=== PATIENT | male | born 1940 | race Caucasian/White ===

== ENCOUNTER 2016-11-16 10:03 | Inpatient (IN) | payer MEDICARE, OTHER ==
[~2016-11-16] VITALS: Ht 172.7 cm; Wt 67.2 kg
[2016-11-16] MEDS ORDERED: MULT1TAB11 PO (10:14)
[2016-11-16 10:25] LABS: BASO % 0.9 % (0.0-1.0); EOS # 0.3 K/mm3 (0.0-0.50); EOS % 4.9 % (0.0-3.0); LARGE UNSTAINED CELL # 0.1 K/mm3 (0.0-0.4); LYMPH # 1.2 K/mm3 (1.5-4.5); LYMPH % 19.8 % (24.0-44.0); MEAN CORPUSCULAR HEMOGLOBIN 31.2 pg (27.0-33.0); MEAN CORPUSCULAR HGB CONC 33.3 g/dl (32.0-36.5); MEAN CORPUSCULAR VOLUME 93.8 fl (80.0-96.0); MONO # 0.4 K/mm3 (0.0-0.8); MONO % 6.4 % (0.0-5.0); NEUTROPHILS # 4.1 K/mm3 (1.8-7.7); PLATELET COUNT, AUTOMATED 255 k/mm3 (150-450); WHITE BLOOD COUNT 6.1 K/mm3 (4.0-10.0)
[2016-11-16 10:31] LABS: INR 0.91
--- NOTE | 2016-11-16 10:40 | REP ---
CT HEAD WITHOUT CONTRAST: HISTORY: Infarction. An area of decreased attenuation is present in the left internal capsule. This represents an old lacunar infarction. Areas of decreased attenuation are present in the periventricular white matter. This represents small vessel ischemic disease. There is no intraparenchymal hemorrhage, mass or midline shift. The ventricular system and cortical sulci are dilated consistent with minimal volume loss. There is no extracerebral collection. The visualized sinuses are clear. IMPRESSION: 1. 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 2. Small vessel ischemic disease. 3. Minimal volume loss. Signed by Esteban Lugo MD 11/16/2016 10:43 A
--- NOTE | 2016-11-16 10:42 | ECGEPIP ---
Stationary ECG Study [facility] - ED Test Date: 2016-11-16 Pat Name: STEPHIE SAMUELS Department: Room: - Gender: M Glass Carrier: leonila : 1940 Requested By: Yandel Dash Order Number: [id number] Reading MD: Tuan De La Torre Measurements Intervals [place] Rate: 72 P: 69 HI: 191 QRS: 25 QRSD: 102 T: 45 QT: 385 QTc: 423 Interpretive Statements SINUS RHYTHM POSSIBLE LAE NO PRIORS Electronically Signed On 11-16-2016 10:41:40 EDT by Tuan De La Torre
--- NOTE | 2016-11-16 10:42 | REP ---
Chest one-view HISTORY: Infarction Comparison: None The lungs are clear. The heart is normal in size. The pulmonary vasculature is normal in appearance. Impression: No acute disease. Signed by Esteban Lugo MD 11/16/2016 10:35 A
[2016-11-16 10:50] LABS: ANION GAP 8 MEQ/L (8-16); BLOOD UREA NITROGEN 19 MG/DL (7-18); CALCIUM LEVEL 9.1 MG/DL (8.8-10.2); CARBON DIOXIDE LEVEL 27 MEQ/L (21-32); CHLORIDE LEVEL 107 MEQ/L (98-107); CREATININE FOR GFR 1.54 MG/DL (0.70-1.30); GLOMERULAR FILTRATION RATE 47.2 (>42); GLUCOSE, FASTING 79 MG/DL (83-110); POTASSIUM SERUM 4.4 MEQ/L (3.5-5.1); SODIUM LEVEL 142 MEQ/L (136-145)
[2016-11-16] MEDS ORDERED: ISOVUE-370 76% 100ML VIAL (Q9967) As Ordered ONE (11:08)
--- NOTE | 2016-11-16 12:12 | REP ---
CT ANGIO HEAD: HISTORY: Left arm weakness. Contrast: Isovue 370, 75 mL. There is no aneurysm or arteriovenous malformation. Calcified atherosclerotic plaques are present in the cavernous internal carotid arteries. These produce at least mild stenosis. Major intracranial vessels are patent. The left vertebral artery is dominant. IMPRESSION: 1. There is no aneurysm or arteriovenous malformation. 2. Atherosclerotic disease as described above. Signed by Esteban Lugo MD 11/16/2016 12:14 P
[2016-11-16] MEDS ORDERED: VITA400C2 PO (12:14)
[2016-11-16] MEDS ORDERED: GARL500T PO (12:14)
[2016-11-16] MEDS ORDERED: VITMTA PO (12:14)
[2016-11-16] MEDS ORDERED: VITA-122 PO (12:14)
[2016-11-16] MEDS ORDERED: ASPI1TAB PO (12:14)
[2016-11-16] MEDS ORDERED: OCUVTAB PO (12:16)
[2016-11-16] MEDS ORDERED: ACETAMINOPHEN TAB 650MG DOSE (2X325MG) PO PRN (12:30)
[2016-11-16 12:47] LABS: ALBUMIN 3.8 GM/DL (3.2-5.2); ALBUMIN/GLOBULIN RATIO 1.19 (1.00-1.93); ALKALINE PHOSPHATASE 98 U/L (45-117); ALT/SGPT 29 U/L (12-78); AST/SGOT 29 U/L (15-37); BILIRUBIN,TOTAL 0.5 MG/DL (0.2-1.0); MAGNESIUM LEVEL 2.3 MG/DL (1.8-2.4)
--- NOTE | 2016-11-16 12:50 | HPEPDOC ---
General Date of Admission Nov 16, 2016 at 12:18 Chief Complaint The patient is a 76-year-old male Presented to the ER with complaints of left hand clumsiness and weakness since 830 AM. History of Present Illness Patient is a 76 year old male with a PMHx Irritable bowel syndrome and arthritis of the thumbs who presented to the ER with complaints of left hand clumsiness and weakness since 830AM. Patient noted that he woke up without any issues and was shaving. He later noticed that he had some clubmsiness and weakness of that hand that he tried to shake off. He took a shower after that and noticed there was no change. He then had his bring him to the ER. Patient denies any history of stroke or heart attacks in the past. Has never had a stress test, chest pain or shortness of breath. He notes that he takes ASA 81 mg, 2 pills daily for arthritis. Upon arrival to the ER, patient had a CT scan of his head which was negative for hemorrhage. [facility] was contacted and he had a discussion with Dr. Mariya Chaudhary who recommended that tPA was not-indicated given that he had minimal symptoms. He was advised to have a CTA of his head and an MRI completed. Hospitalist team was called for admission at that point. Patient denies nausea, vomiting, chest pain, shortness of breath, cough, abdominal pain, constipation, diarrhea, urinary symptoms or fever. He denies any slurred speech or difficulty with ambulation. Home Medications Scheduled Aspirin (Aspirin 81) 81 Mg Tab 162 MG PO DAILY (Reported) Cholecalciferol (Vitamin D3) 1,000 Unit Tab 1,000 UNIT PO DAILY (Reported) Garlic (Garlic) 500 Mg Tab 500 MG PO DAILY (Reported) Multivitamins (Ocuvite) 1 Tab Tab 1 TAB PO DAILY (Reported) Multivitamins *[facility] STOCKED* (Thera M Plus *[facility] STOCKED*) 1 Tab Tab 1 TAB PO DAILY (Reported) Vitamin E (Vitamin E) 400 Unit Cap 400 UNIT PO DAILY (Reported) Allergies Coded Allergies: No Known Allergies (Unverified , 11/16/16) Past Medical History Medical History Irritable bowel syndrome and arthritis Surgical History Appendectomy (1964) Family History - Mother with a history of TIA and Strokes - Fathers history unknown - No history of malignancies Social History - Denies the use of tobacco or illicit drugs; Drinks wine occasionally - Denies recent travel or sick contacts - Lives with in [place] - Occupation; Owns an Insurance [employer] Review of Symptoms Other systems Constitutional: Reports weight loss of 10 lbs over 2-3 years, No change in appetite, or recent trauma Eyes: No visual changes or eye pain Ears, Nose, Throat: Denies nose bleeds, or difficulty swallowing Cardiovascular: Denies chest pain, sweating, or orthopnea Respiratory: Denies cough, wheezing, or shortness of breath GI: Kaushik nausea, vomiting, abdominal pain, diarrhea or constipation : Denies pain with urination or frequency Musculoskeletal: Denies joint pain or swelling Neuro / Psych: Reports left hand weakness / clumsiness Skin: No skin rashes noted All other review of systems negative; otherwise stated in history of present illness Screening: - Colonoscopy never done Vital Signs - Vitals: BP 175/95, HR 72, RR 16, Sat 98%RA, Temp 98.9F - General: Lying in bed, No acute distress, Speaking in full sentences, AAOx3 - HEENT: NC, AT, PERRLA, EOMI - CVS: RRR, +S1S2, No murmurs appreciated - Lungs: Fair air entry bilaterally, Clear to auscultation, No wheezing / rales / rhonchi - Abdomen: Soft, Non-distended, Non-tender, + Bowel sounds x 4 - Extremities: + PPx4, No lower extremity edema, No calf tenderness - Neuro: 5/5 at all extremities except at LUE with 4/5 strength, Sensation intact bilaterally, CN2-12 grossly intact, reflexes intact bilaterally at LE - Skin: No visible rashes Laboratory Data Labs 24H Laboratory Tests 2 11/16/16 10:16: Activated Partial Thromboplast Time 26.8, Blood Urea Nitrogen 19H, Creatinine 1.54H, Sodium Level 142, Potassium Level 4.4, Chloride Level 107, Carbon Dioxide Level 27, Calcium Level 9.1, Aspartate Amino Transf (AST/SGOT) 29, Alanine Aminotransferase (ALT/SGPT) 29, Total Creatine Kinase 178, Alkaline Phosphatase 98, Total Bilirubin 0.5, Total Protein 7.0, Albumin 3.8, Albumin/ Globulin Ratio 1.19, Anion Gap 8, White Blood Count 6.1, Red Blood Count 4.56, Hemoglobin 14.2, Hematocrit 42.7, Mean Corpuscular Volume 93.8, Mean Corpuscular Hemoglobin 31.2, Mean Corpuscular Hemoglobin Concent 33.3, Red Cell Distribution Width 12.0, Platelet Count 255, Neutrophils (%) (Auto) 66.0, Lymphocytes (%) (Auto) 19.8L, Monocytes (%) (Auto) 6.4H, Eosinophils (%) (Auto) 4.9H, Basophils (%) (Auto) 0.9, Neutrophils # (Auto) 4.1, Lymphocytes # (Auto) 1.2L, Monocytes # (Auto) 0.4, Eosinophils # (Auto) 0.3, Basophils # (Auto) 0.0, Creatine Kinase MB 5.0H, Creatine Kinase MB Relative Index 2.80, Glomerular Filtration Rate 47.2, Large Unclassified Cells # 0.1, Large Unclassified Cells % 2.0, Magnesium Level 2.3, Prothromb Time International Ratio 0.91, Prothrombin Time 12.4, Troponin I < 0.02 11/16/16 10:33: Bedside Glucose (Misc Panel) 81L CBC/BMP Laboratory Tests 11/16/16 10:16 Calcium Level 9.1, Aspartate Amino Transf (AST/SGOT) 29, Alanine Aminotransferase (ALT/SGPT) 29, Total Creatine Kinase 178, Alkaline Phosphatase 98, Total Bilirubin 0.5, Total Protein 7.0, Albumin 3.8, Red Blood Count 4.56, Mean Corpuscular Volume 93.8, Mean Corpuscular Hemoglobin 31.2, Mean Corpuscular Hemoglobin Concent 33.3, Red Cell Distribution Width 12.0, Neutrophils (%) (Auto) 66.0, Lymphocytes (%) (Auto) 19.8 L, Monocytes (%) (Auto ) 6.4 H, Eosinophils (%) (Auto) 4.9 H, Basophils (%) (Auto) 0.9, Neutrophils # ( Auto) 4.1, Lymphocytes # (Auto) 1.2 L, Monocytes # (Auto) 0.4, Eosinophils # ( Auto) 0.3, Basophils # (Auto) 0.0 Plan / VTE VTE Prophylaxis Ordered?: Yes Plan Plan Left hand weakness possibly 2/2 acute CVA - Presented with symptoms that started at 830 AM - [facility] contacted; Dr. 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 Alfred) will be on consult Hypertension - will allow permissive hypertension in next 48-72 hours - will monitor for now Elevated creatinine - possibly 2/2 BENJAMIN or CKD - No baseline to compare - Will check urinalysis and urine electrolytes - Will start IV fluid hydration Irritable bowel syndrome - does not take any medications Arthritis of thumbs, bilaterally - reports that he takes ASA for his hands - will increase dose of ASA from 162 to 325 DVT prophylaxis - Will start SCDs EMMANUEL GOODE MD Nov 16, 2016 12:50
--- NOTE | 2016-11-16 14:31 | REP ---
MR BRAIN WITHOUT CONTRAST: HISTORY: Left hand weakness. COMPARISON: CT 11/16/2016 Two punctate areas of increased signal intensity on diffusion and T2-weighted images are present in the right frontal and parietal lobes. These are decreased in signa intensity on the ADC images and are consistent with acute infarctions. Scattered punctate areas of increased signal intensity on T2-weighted images are present in the periventricular and subcortical white matter. This represents small vessel ischemic disease. There is no intraparenchymal hemorrhage, mass, or midline shift. The ventricular system and cortical sulci are dilated consistent with minimal volume loss. There is no extracerebral collection. The sinuses are clear. IMPRESSION: 1. There are two very small acute infarctions in the right frontal and parietal lobes. 2. Small vessel ischemic disease. 3. Minimal volume loss. Signed by Esteban Lugo MD 11/16/2016 02:52 P
[2016-11-16 15:07] VITALS: BP 163/87
--- NOTE | 2016-11-16 15:11 | REP ---
CAROTID DUPLEX ULTRASOUND: 11/16/2016. Clinical history: CVA symptoms. Left hand weakness. No comparison study. Findings: Duplex techniques utilized. There is some scattered mixed and soft plaque in the right common carotid artery. More plaque is seen at the bulb and extending in a circumferential fashion into the proximal ICA and ECA. The left common carotid shows some intimal thickening and soft and mixed plaque. This is seen extending to the bulb but with less plaque on the left than right side at the bulb and proximal ICA. Peak velocities: Right Left CCA systolic 0.81 m/s 1.11 m/s ICA systolic 1.02 m/s 0.71 m/s ICA diastolic 0.36 m/s 0.27 m/s ECA systolic 1.16 m/s 0.86 m/s ICA/CCA ratio 1.25 0.64 Cranial direction of flow in the left vertebral artery with good Doppler waveform and color flow. On the right, there is poor visualization of the vertebral artery, but pulse Doppler shows normal flow in a cranial direction. Impression: 1. There is some bilateral carotid stenosis (less than 50% stenosis) greater right than left. There is greater stenosis of the bulb and proximal right internal carotid than the left with more plaque visible. Both sides show less than 50% on each side. No hemodynamically significant or flow restricting lesion. 2. Cranial direction of flow in the left vertebral artery is seen. Color flow not demonstrated in the right vertebral artery. The pulsed wave Doppler did show a cranial direction of flow on the right vertebral exam. Signed by Manoj Alexander MD 11/16/2016 05:09 P
[2016-11-16] MEDS: NS 1,000 ML IV SCH (15:31)
[2016-11-16] MEDS: ATORVASTATIN 20 MG TAB PO SCH (15:33)
[2016-11-16] MEDS ORDERED: ATORVASTATIN 10 MG TAB PO ONE (19:15)
[2016-11-16] MEDS ORDERED: ASPIRIN 325 MG TAB PO ONE (19:15)
--- NOTE | 2016-11-16 19:45 | ECHO ---
DATE OF PROCEDURE: 11/16/2016 REFERRING PHYSICIAN: Dr. Casey Manning INDICATIONS: Cerebrovascular accident. HEIGHT: 173 cm WEIGHT: 71 kg DIMENSIONS: IVS:1.2 LV: 4.3 LVPW: 1.2 LA: 3.7 Aorta: 3.7 Mitral E-wave velocity 66.1 cm/sec E-prime velocity septal 7.1 cm/sec E-prime velocity lateral 7.8 cm/sec FINDINGS: The study is of fair technical quality with difficult visualization. Left ventricle is of normal size and grossly normal systolic function based on limited views. Mild left ventricular hypertrophy (LVH) is present. Right ventricle does not appear enlarged. Left atrium and right atrium appear grossly normal size. Aortic valve appears normal. Same applies for mitral tricuspid and pulmonic valves. No pericardial effusion is noted. Inferior vena cava is normal caliber with limited visualization. Aortic root appears normal. Aortic arch and abdominal aorta were not well seen. Doppler interrogation of aortic valve reveals no stenosis and trace insufficiency. There is no significant mitral stenosis insufficiency and trace tricuspid insufficiency. Calculated pulmonary artery pressure is within normal limits. Mitral inflow pattern and tissue Doppler imaging of mitral annulus reveal grade 1 diastolic dysfunction. CONCLUSIONS: 1. Study is of limited technical quality. 2. Normal left ventricle (LV) size with mild LVH and normal LV systolic function. Grade 1 diastolic dysfunction. 3. No significant valvular disease. 4. Probably normal central venous pressure and pulmonary artery pressure. COMMENT: Subacute bacterial endocarditis (SBE) prophylaxis is not recommended. 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
[2016-11-16 20:36] VITALS: BP 160/88
[2016-11-17] VITALS (7 sets, daily range): BP systolic 141–169; BP diastolic 72–85
[2016-11-17] MEDS: NS 1,000 ML IV SCH (04:00)
[2016-11-17 06:13] LABS: BASO % 0.5 % (0.0-1.0); EOS # 0.3 K/mm3 (0.0-0.50); EOS % 5.2 % (0.0-3.0); LARGE UNSTAINED CELL # 0.1 K/mm3 (0.0-0.4); LARGE UNSTAINED CELL % 1.7 % (0.0-4.0); LYMPH # 1.5 K/mm3 (1.5-4.5); LYMPH % 21.7 % (24.0-44.0); MEAN CORPUSCULAR HEMOGLOBIN 31.5 pg (27.0-33.0); MEAN CORPUSCULAR HGB CONC 33.9 g/dl (32.0-36.5); MEAN CORPUSCULAR VOLUME 93.2 fl (80.0-96.0); MONO # 0.3 K/mm3 (0.0-0.8); MONO % 5.4 % (0.0-5.0); NEUTROPHILS # 4.1 K/mm3 (1.8-7.7); NEUTROPHILS % 65.5 % (36.0-66.0); PLATELET COUNT, AUTOMATED 206 k/mm3 (150-450); RED CELL DISTRIBUTION WIDTH 12.3 % (11.5-14.5); WHITE BLOOD COUNT 6.2 K/mm3 (4.0-10.0)
[2016-11-17 06:30] LABS: ALKALINE PHOSPHATASE 78 U/L (45-117); ALT/SGPT 23 U/L (12-78); AST/SGOT 19 U/L (15-37); BILIRUBIN,TOTAL 0.6 MG/DL (0.2-1.0); BLOOD UREA NITROGEN 15 MG/DL (7-18); CALCIUM LEVEL 8.6 MG/DL (8.8-10.2); GLUCOSE, FASTING 94 MG/DL (83-110); MAGNESIUM LEVEL 2.1 MG/DL (1.8-2.4); POTASSIUM SERUM 3.8 MEQ/L (3.5-5.1); SODIUM LEVEL 142 MEQ/L (136-145); TOTAL PROTEIN 6.1 GM/DL (6.4-8.2)
[2016-11-17 06:39] LABS: ALBUMIN 3.1 GM/DL (3.2-5.2); ALBUMIN/GLOBULIN RATIO 1.03 (1.00-1.93)
[2016-11-17] MEDS ORDERED: ASPIRIN 81 MG ENTERIC TAB PO SCH (09:00)
[2016-11-17 09:04] LABS: ANION GAP 4 MEQ/L (8-16); CARBON DIOXIDE LEVEL 30 MEQ/L (21-32); CHLORIDE LEVEL 108 MEQ/L (98-107)
[2016-11-17] MEDS: ATORVASTATIN 20 MG TAB PO SCH (09:21)
[2016-11-17] MEDS: MULTIVITAMINS/MINERALS THERAP 1 TAB PO SCH (09:21)
[2016-11-17] MEDS: VITAMIN E 400 INTERNATIONAL UNITS CAP PO SCH (09:21)
[2016-11-17] MEDS: ASPIRIN ENTERIC 325 MG TAB PO SCH (09:21)
[2016-11-17] MEDS: VITAMIN D 1,000 INTERNATIONAL UNITS TABLET PO SCH (09:21)
--- NOTE | 2016-11-17 09:39 | CR ---
DATE OF CONSULTATION: 11/17/2016 HISTORY OF PRESENT ILLNESS: The patient is a 76-year-old right-handed male presenting to [facility] after having clumsiness of his left hand. The patient states the symptoms started approximately between 8:00 and 8:38 a.m. He arrived to little short of 9:00 a.m. to the emergency department. Head CT was negative for any intracranial hemorrhage. The ER staff contacted [facility] stroke service and spoke with Dr. Ania Donnelly who did not recommend tissue plasminogen activator (TPA). The patient was advised stroke workup and recommended to switch from aspirin to Plavix. The patient takes aspirin for arthritic pain and wishes to continue on it. A compromise was made and the patient was placed on aspirin 325 mg daily. He refused to start a statin medication. The patient at bedside agreed to consider a very low-dose 10 mg atorvastatin at the most. The patient denies any further symptoms. He states that his hand and clumsiness of the left upper extremity has improved since the morning. MRI of the brain has revealed two ischemic strokes involving the right frontal and the right parietal lobes. The patient has small-vessel ischemic disease minimal volume loss. He denies being a tobacco user. He does not have any significant past medical history. PAST MEDICAL HISTORY: Vitamin D deficiency. Osteoarthritis. Irritable bowel syndrome. REVIEW OF SYSTEMS: 14-point review of systems is negative except for as per HPI. FAMILY HISTORY: Noncontributory. Mother with stroke at a very old age. SOCIAL HISTORY: The patient denies use of tobacco, alcohol or illicit drugs. ALLERGIES: None. HOME MEDICATIONS: - aspirin 81 mg 2 tablets by mouth daily. - vitamin D3 1000 international units by mouth daily - garlic 5 mg daily - multivitamin by mouth daily - Ocuvite by mouth daily - vitamin E 400 mg capsule by mouth daily PAST SURGICAL HISTORY: Appendectomy in 1963. PHYSICAL EXAMINATION: Blood pressure is 163/87, pulse rate 72, respiratory rate is 18, temperature is 98.1 degrees Fahrenheit, oxygenation 98% on room air. Current height 5 feet 8 inches, current weight is 69.7 kg. The patient is awake, alert, oriented to person, place and time. Speech language comprehension, repetition are intact. Pupils are 3 mm round, reactive to light. Sensation V1, V2, V3 is intact to light touch. No facial asymmetry to activation. Palate elevates symmetrically. Tongue is midline. No weakness of sternocleidomastoid bilaterally. No pronator drift. Strength is 5/5 including deltoids, biceps, triceps, hand tool grinding technician, iliopsoas, quadriceps, anterior tibialis. Deep tendon reflexes are 2+ throughout. Romberg testing is negative. Coordination: Normal [id number], [id number] on the right side, very minimal ataxia is noted of the left upper extremity. Romberg testing is negative. Gait is normal. ASSESSMENT: Ischemic stroke involving the right frontal and right parietal lobe. Rule out causes for emboli. PLAN: 1. Continue aspirin 325 mg daily. Start atorvastatin 10 mg by mouth daily. The patient wishes to not try a dose higher than this. 2. Obtain echocardiogram with bubble study. 3. Continue telemetry monitoring. Continue physical therapy and occupational; therapy. 4. Keep systolic blood pressure 140 to 180 for the next 48 hours. 5. Carotid ultrasound shows less than 50% stenosis bilaterally. The patient will need to followup with the neurology office within 4 weeks of discharge.
--- NOTE | 2016-11-17 11:51 | IPNPDOC ---
Text Note Date of Service The patient was seen on 11/17/16. NOTE Subjective: Patient is a 76 year old male with a PMHx Irritable bowel syndrome and arthritis who presented to the ER with complaints of left hand clumsiness and weakness. Was found to have an acute ischemic stroke and admitted to telemetry. Patient was seen and examined at the bedside. Clinically notes improvement in his strength. Objective: Vitals (See below) General: Lying in bed, no acute distress, comfortable, AAOx3 HEENT: NC, AT CVS: RRR, +S1S2 Lungs: Fair air entry b/l, -w/r/r Abdomen: Soft, ND, NT, +BSx4 Extremities: +PPx4, - Edema, - Calf tenderness Neuro: 5/5 strength in upper and lower extremities bilaterally, no sensory deficit Assessment and plan: 1. Left hand weakness - likely 2/2 acute ischemic CVA - [facility] Stroke was contacted initially and no tPA was indicated, given minor symptoms - Physical shows improvement in strength - MRI 11/16: two very small acute infarctions in R frontal and parietal lobes - EKG reveals sinus rhythm without ischemic changes - US carotid does not reveal significant stenosis - ECHO 11/16: LVH and grade 1 diastolic dysfunction - c/w Atorvastatin 80 and ASA 325 daily - Neurology (Dr. Alfred) - on consult - Cleared by occupational therapy 2. Hypertension - will allow permissive hypertension in next 48-72 hours - will monitor for now 3. Elevated creatinine - possibly 2/2 BENJAMIN or CKD - No baseline to compare - UA normal - s/p IV fluid hydration 4. Irritable bowel syndrome - does not take any medications 5. Arthritis of thumbs, bilaterally - reports that he takes ASA for his hands - c/w ASA 6. DVT prophylaxis - Will c/w SCDs VS,Fishbone, I+O VS, Fishbone, I+O Laboratory Tests 11/17/16 05:34 Calcium Level 8.6 L, Aspartate Amino Transf (AST/SGOT) 19, Alanine Aminotransferase (ALT/SGPT) 23, Alkaline Phosphatase 78, Total Bilirubin 0.6, Total Protein 6.1 L, Albumin 3.1 L, Red Blood Count 4.04 L, Mean Corpuscular Volume 93.2, Mean Corpuscular Hemoglobin 31.5, Mean Corpuscular Hemoglobin Concent 33.9, Red Cell Distribution Width 12.3, Neutrophils (%) (Auto) 65.5, Lymphocytes (%) (Auto) 21.7 L, Monocytes (%) (Auto) 5.4 H, Eosinophils (%) (Auto ) 5.2 H, Basophils (%) (Auto) 0.5, Neutrophils # (Auto) 4.1, Lymphocytes # (Auto ) 1.5, Monocytes # (Auto) 0.3, Eosinophils # (Auto) 0.3, Basophils # (Auto) 0.0 Vital Signs Date Time Temp Pulse Resp B/P Pulse Ox O2 Delivery O2 Flow Rate FiO2 11/17/16 08:00 98.7 74 19 168/85 97 Room Air I&O- Last 24 Hours up to 6 AM 11/17/16 06:00 Intake Total 1580 ml Output Total 975 ml Balance 605 ml EMMANUEL GOODE MD Nov 17, 2016 11:51
[2016-11-18 04:00] VITALS: BP 156/91
[2016-11-18 05:56] LABS: BASO % 0.6 % (0.0-1.0); EOS # 0.3 K/mm3 (0.0-0.50); EOS % 4.7 % (0.0-3.0); LARGE UNSTAINED CELL # 0.1 K/mm3 (0.0-0.4); LARGE UNSTAINED CELL % 1.9 % (0.0-4.0); LYMPH # 1.2 K/mm3 (1.5-4.5); LYMPH % 19.1 % (24.0-44.0); MEAN CORPUSCULAR HEMOGLOBIN 30.7 pg (27.0-33.0); MEAN CORPUSCULAR HGB CONC 32.8 g/dl (32.0-36.5); MEAN CORPUSCULAR VOLUME 93.6 fl (80.0-96.0); MONO # 0.4 K/mm3 (0.0-0.8); MONO % 6.4 % (0.0-5.0); NEUTROPHILS # 4.3 K/mm3 (1.8-7.7); NEUTROPHILS % 67.2 % (36.0-66.0); PLATELET COUNT, AUTOMATED 215 k/mm3 (150-450); WHITE BLOOD COUNT 6.4 K/mm3 (4.0-10.0)
[2016-11-18 06:13] LABS: ALBUMIN 3.1 GM/DL (3.2-5.2); ALBUMIN/GLOBULIN RATIO 1.15 (1.00-1.93); BILIRUBIN,TOTAL 0.6 MG/DL (0.2-1.0); CALCIUM LEVEL 8.4 MG/DL (8.8-10.2); CREATININE FOR GFR 1.38 MG/DL (0.70-1.30); GLOMERULAR FILTRATION RATE 53.6 (>42); POTASSIUM SERUM 3.7 MEQ/L (3.5-5.1); TOTAL PROTEIN 5.8 GM/DL (6.4-8.2)
[2016-11-18 08:00] VITALS: BP 154/87
[2016-11-18] MEDS: VITAMIN E 400 INTERNATIONAL UNITS CAP PO SCH (08:22)
[2016-11-18] MEDS: ASPIRIN ENTERIC 325 MG TAB PO SCH (08:22)
[2016-11-18] MEDS: MULTIVITAMINS/MINERALS THERAP 1 TAB PO SCH (08:22)
[2016-11-18] MEDS: ATORVASTATIN 20 MG TAB PO SCH (08:22)
[2016-11-18] MEDS: VITAMIN D 1,000 INTERNATIONAL UNITS TABLET PO SCH (08:22)
--- NOTE | 2016-11-18 11:36 | IPNPDOC ---
Text Note Date of Service The patient was seen on 11/18/16. NOTE Subjective: Patient is a 76 year old male with a PMHx Irritable bowel syndrome and arthritis who presented to the ER with complaints of left hand clumsiness and weakness. Was found to have an acute ischemic stroke and admitted to telemetry. Patient was seen and examined at the bedside. Does not have any concerns this morning. Is looking forward to leaving soon. Again expressed that he thought this could be done as an outpatient, explained to him the increased possibility of repeat strokes in the 72 hours after the initial event. Objective: Vitals (See below) General: Lying in bed, no acute distress, comfortable, AAOx3 HEENT: NC, AT CVS: RRR, +S1S2 Lungs: Fair air entry b/l, -w/r/r Abdomen: Soft, ND, NT, +BSx4 Extremities: +PPx4, - Edema, - Calf tenderness Neuro: 5/5 strength in upper and lower extremities bilaterally, no sensory deficit Assessment and plan: 1. Left hand weakness - likely 2/2 acute ischemic CVA - [facility] Stroke was contacted initially and no tPA was indicated, given minor symptoms - Physical shows improvement in strength - MRI 11/16: two very small acute infarctions in R frontal and parietal lobes - EKG reveals sinus rhythm without ischemic changes - US carotid does not reveal significant stenosis - ECHO 11/16: LVH and grade 1 diastolic dysfunction - c/w Atorvastatin 80 and ASA 325 daily - Neurology (Dr. Alfred) - on consult - Cleared by occupational therapy - Will keep on telemetry monitoring for 72 hours total (Will be completed by AM) 2. Hypertension - allow SBP to remain between 140-180 - will monitor for now 3. Elevated creatinine - likely CKD - No baseline to compare - UA normal - s/p IV fluid hydration 4. Irritable bowel syndrome - does not take any medications 5. Arthritis of thumbs, bilaterally - reports that he takes ASA for his hands - c/w ASA 6. DVT prophylaxis - Will c/w SCDs VS,Fishbone, I+O VS, Fishbone, I+O Laboratory Tests 11/18/16 05:32 Calcium Level 8.4 L, Aspartate Amino Transf (AST/SGOT) 21, Alanine Aminotransferase (ALT/SGPT) 24, Alkaline Phosphatase 81, Total Bilirubin 0.6, Total Protein 5.8 L, Albumin 3.1 L, Red Blood Count 4.19 L, Mean Corpuscular Volume 93.6, Mean Corpuscular Hemoglobin 30.7, Mean Corpuscular Hemoglobin Concent 32.8, Red Cell Distribution Width 12.0, Neutrophils (%) (Auto) 67.2 H, Lymphocytes (%) (Auto) 19.1 L, Monocytes (%) (Auto) 6.4 H, Eosinophils (%) (Auto ) 4.7 H, Basophils (%) (Auto) 0.6, Neutrophils # (Auto) 4.3, Lymphocytes # (Auto ) 1.2 L, Monocytes # (Auto) 0.4, Eosinophils # (Auto) 0.3, Basophils # (Auto) 0.0 Vital Signs Date Time Temp Pulse Resp B/P Pulse Ox O2 Delivery O2 Flow Rate FiO2 11/18/16 08:00 98.9 74 18 154/87 96 Room Air I&O- Last 24 Hours up to 6 AM 11/18/16 06:00 Intake Total 2720 ml Output Total 1400 ml Balance 1320 ml EMMANUEL GOODE MD Nov 18, 2016 11:35
[2016-11-18 12:00] VITALS: BP 150/80
[2016-11-18 16:00] VITALS: BP 143/83
[2016-11-18 20:00] VITALS: BP 159/79
[2016-11-18 23:56] VITALS: BP 137/76
[2016-11-19 04:00] VITALS: BP 159/81
[2016-11-19 06:00] LABS: BASO % 0.7 % (0.0-1.0); EOS # 0.4 K/mm3 (0.0-0.50); EOS % 5.5 % (0.0-3.0); LARGE UNSTAINED CELL # 0.2 K/mm3 (0.0-0.4); LARGE UNSTAINED CELL % 2.3 % (0.0-4.0); LYMPH # 1.3 K/mm3 (1.5-4.5); LYMPH % 17.3 % (24.0-44.0); MEAN CORPUSCULAR HEMOGLOBIN 31.3 pg (27.0-33.0); MEAN CORPUSCULAR HGB CONC 33.5 g/dl (32.0-36.5); MEAN CORPUSCULAR VOLUME 93.3 fl (80.0-96.0); MONO # 0.4 K/mm3 (0.0-0.8); MONO % 6.1 % (0.0-5.0); NEUTROPHILS # 4.5 K/mm3 (1.8-7.7); NEUTROPHILS % 68.2 % (36.0-66.0); PLATELET COUNT, AUTOMATED 220 k/mm3 (150-450); RED CELL DISTRIBUTION WIDTH 12.1 % (11.5-14.5); WHITE BLOOD COUNT 6.6 K/mm3 (4.0-10.0)
[2016-11-19 06:17] LABS: ALBUMIN 3.1 GM/DL (3.2-5.2); ALBUMIN/GLOBULIN RATIO 1.07 (1.00-1.93); BILIRUBIN,TOTAL 0.5 MG/DL (0.2-1.0); CALCIUM LEVEL 8.3 MG/DL (8.8-10.2); CREATININE FOR GFR 1.4 MG/DL (0.70-1.30); GLOMERULAR FILTRATION RATE 52.7 (>42); MAGNESIUM LEVEL 1.9 MG/DL (1.8-2.4)
[2016-11-19] MEDS ORDERED: ATOR1TAB19 PO (07:12)
[2016-11-19] MEDS ORDERED: ASPI324T PO (07:12)
[2016-11-19 07:58] VITALS: BP 165/81
[2016-11-19] MEDS: ASPIRIN ENTERIC 325 MG TAB PO SCH (08:32)
[2016-11-19] MEDS: VITAMIN D 1,000 INTERNATIONAL UNITS TABLET PO SCH (08:32)
[2016-11-19] MEDS: VITAMIN E 400 INTERNATIONAL UNITS CAP PO SCH (08:32)
[2016-11-19] MEDS: MULTIVITAMINS/MINERALS THERAP 1 TAB PO SCH (08:32)
[2016-11-19] MEDS ORDERED: ATORVASTATIN 10 MG TAB PO SCH (09:00)
--- NOTE | 2016-11-19 15:07 | DSES ---
DATE OF ADMISSION: 11/16/2016 DATE OF DISCHARGE: 11/19/2016 PRIMARY CARE PROVIDER: Dr. Randy Valentin. REFERRING PHYSICIANS: None. CONSULTING PHYSICIANS: Dr. Ebony Alfred CONDITION ON DISCHARGE: Stable. FINAL DIAGNOSIS: Acute cerebral vascular accident (CVA). PROCEDURES: None. HISTORY OF PRESENT ILLNESS: The patient is a 76-year-old male with the past medical history of irritable bowel syndrome and arthritis who presented to the emergency room with complaints of left hand clumsiness and weakness. He was found to have an acute ischemic stroke and was admitted to telemetry. HOSPITAL COURSE: 1. Left-handed weakness likely secondary to acute ischemic CVA. [facility] [place] was contacted. Initially, no TPA was indicated given minor symptoms. Physical showed improvement in the strength throughout his hospital course. MRI on 11/16/2016 revealed two very small acute infarctions in the right frontal and parietal lobes. EKG revealed a sinus rhythm without any acute changes. Ultrasound of the carotids revealed no significant stenosis. Echo also revealed left ventricular hypertrophy and grade 1 diastolic dysfunction. He was started on atorvastatin [address] Alfred from neurology was consulted. He was cleared by occupational therapy. He was kept on telemetry monitoring for 72 hours and was discharged on 11/19/2016. Upon discharge, the patient was advised to remain compliant with aspirin 325 and he was given a prescription for atorvastatin 10 mg. The patient was advised to followup with his primary care provider within the next 1 week as well as neurology within the next four weeks. 2. Hypertension: Systolic blood pressure was allowed to remain between 140 to 180. We will monitor for now. He was not started on any medications. 3. Elevated creatinine likely secondary to chronic kidney disease (CKD). No baseline to compare to. IV fluids were initially attempted to correct for creatinine but this appears to be chronic in nature. 4. Irritable bowel syndrome: Does not take any medications. 5. Arthritis of the thumbs bilaterally: Reports that he takes aspirin for his hands. We will continue with aspirin. 6. Deep venous thrombosis prophylaxis: Continue with compression devices. DISCHARGE MEDICATIONS: The patient will be discharged home with the following medication list: Continued medications include: - vitamin D3 1000 units by mouth daily - garlic 500 mg by mouth by mouth daily - multivitamin one tablet by mouth daily - vitamin E 400 units by mouth daily Stop medications include: - aspirin 162 mg by mouth daily New medications prescribed include: - aspirin 325 mg by mouth daily - atorvastatin 10 mg by mouth daily DISCHARGE INSTRUCTIONS: The patient was advised to followup with his primary care provider within the next week as well as neurology within the next 4 weeks. He was advised to remain compliant with treatment plan and medications and return to the emergency room if he experiences any problems. Time spent on discharge: 35 minutes.
== END 2016-11-19 11:07 | disposition home or self-care (01) | DRG 66 ==
LOC: M ED 11:25 → M ED INP 12:18 → M PCU 14:46
PROVIDERS: ADMIT Internal Medicine; ATTEND Internal Medicine
DX: I63.59 Cerebral infarction due to unspecified occlusion or stenosis of other cerebral artery (principal); E55.9 Vitamin D deficiency, unspecified; K58.9 Irritable bowel syndrome, unspecified; N18.9 Chronic kidney disease, unspecified; I12.9 Hypertensive chronic kidney disease with stage 1 through stage 4 chronic kidney disease, or unspecified chronic kidney disease; M18.0 Bilateral primary osteoarthritis of first carpometacarpal joints; Z79.82 Long term (current) use of aspirin; Z79.899 Other long term (current) drug therapy

== ENCOUNTER → 2017-05-24 | Outpatient (REF) | payer MEDICARE, OTHER ==
[~2017-05-24] MED LIST: ASPI1TAB PO; ASPI324T PO; ATOR1TAB19 PO; GARL500T PO; MULT1TAB11 PO; OCUVTAB PO; VITA-122 PO; VITA400C7 PO; VITMTA PO
[2017-05-24 18:08] LABS: ALBUMIN 3.7 GM/DL (3.2-5.2); ALBUMIN/GLOBULIN RATIO 1.19 (1.00-1.93); BILIRUBIN,TOTAL 0.6 MG/DL (0.2-1.0); CALCIUM LEVEL 8.7 MG/DL (8.8-10.2); CREATININE FOR GFR 1.38 MG/DL (0.70-1.30); GLOMERULAR FILTRATION RATE 53.5 (>42); POTASSIUM SERUM 4.2 MEQ/L (3.5-5.1); TOTAL PROTEIN 6.8 GM/DL (6.4-8.2)
[2017-05-24 20:12] LABS: BASO # 0.1 10^3/uL (0.0-0.2); BASO % 1.2 % (0.0-1.0); EOS # 0.2 10^3/uL (0.0-0.50); EOS % 3.7 % (0.0-3.0); IMMATURE GRANULOCYTE % 0.2 % (0-0); LYMPH # 1.5 10^3/uL (1.5-4.5); LYMPH % 23.8 % (24.0-44.0); MEAN CORPUSCULAR HEMOGLOBIN 31.4 pg (27.0-33.0); MEAN CORPUSCULAR HGB CONC 33.3 g/dl (32.0-36.5); MEAN CORPUSCULAR VOLUME 94.3 fl (80.0-96.0); MONO # 0.5 10^3/uL (0.0-0.8); MONO % 8.2 % (0.0-5.0); NEUTROPHILS # 4.1 10^3/uL (1.8-7.7); NEUTROPHILS % 62.9 % (36.0-66.0); PLATELET COUNT, AUTOMATED 235 10^3/uL (150-450); RED CELL DISTRIBUTION WIDTH 12.6 % (11.5-14.5); WHITE BLOOD COUNT 6.5 10^3/uL (4.0-10.0)
[2017-05-24 20:57] LABS: ADD MORPHOLOGY? NO
== END ==
LOC: M LABNEURO 16:53
PROVIDERS: ATTEND Psychiatry & Neurology Neurology
DX: G45.9 Transient cerebral ischemic attack, unspecified (principal)

== ENCOUNTER → 2018-06-07 | Outpatient (CLI) | payer MEDICARE, OTHER | LOC: M RAD 10:36 | DX: I65.23 Occlusion and stenosis of bilateral carotid arteries (principal) | CPT/HCPCS: 93880 ==

== ENCOUNTER → 2019-06-05 | Outpatient (CLI) | payer MEDICARE, OTHER ==
[~2019-06-05] MED LIST changes: -ASPI1TAB PO; +ASPI81TA26 PO
--- NOTE | 2019-06-05 17:28 | REP ---
REASON: Followup carotid arterial stenosis. The prior examination of 06/07/2018 showed less than 50% stenosis in the internal carotid artery bilaterally according to the NASCET consensus criteria. Today's examination again shows calcified and noncalcified atheromatous plaque in the carotid artery bilaterally. RIGHT LEFT CCA systolic 64.4 cm/s 82.0 cm/s CCA diastolic 11.3 cm/s 10.4 cm/s ICA systolic 103.0 cm/s 58.5 cm/s ICA diastolic 9.24 cm/s 18.0 cm/s ICA/CCA ratio 1.6 0.7 Antegrade flow is seen in both vertebral arteries. Analysis of the spectral wave forms shows mild essentially unchanged bilateral internal carotid arterial spectral broadening. IMPRESSION: Both calcified and non-calcified atheromatous plaque formation causes less than 50% stenosis of the internal carotid artery bilaterally. This is according to the NASCET consensus criteria. Electronically Signed by Avery Jaramillo DO 06/05/2019 06:03 P
== END ==
LOC: M RAD 13:54
PROVIDERS: ATTEND Psychiatry & Neurology Neurology
DX: I63.09 Cerebral infarction due to thrombosis of other precerebral artery (principal)

== ENCOUNTER → 2019-07-26 | Outpatient (CLI) | payer MEDICARE, OTHER ==
--- NOTE | 2019-07-26 18:41 | REP ---
MRA RENAL ARTERIES: MRA renal arteries are performed. Axial and coronal localization T2 weighted sequences are performed. These show scattered cysts in the liver and a cyst is noted in the lower pole of the right kidney. Abdominal aorta is normal in caliber. Time of flight imaging is performed with MIP reconstruction images. At the level of the renal arteries the superior mesenteric artery is visualized and is patent with no stenosis. The main left renal artery is visualized and appears patent with no stenosis, however there is suspected severe stenosis at the origin of the main right renal artery. IMPRESSION: MRA renal arteries demonstrates suspected severe high grade stenosis at the origin of the main right renal artery. Electronically Signed by Sloan Chavez MD 07/26/2019 07:07 P
== END ==
LOC: M RAD 15:57
PROVIDERS: ATTEND Internal Medicine Nephrology
DX: I12.9 Hypertensive chronic kidney disease with stage 1 through stage 4 chronic kidney disease, or unspecified chronic kidney disease (principal)

== ENCOUNTER → 2019-09-26 | Outpatient (CLI) | payer MEDICARE, OTHER ==
--- NOTE | 2019-09-26 11:27 | REP ---
Renal ultrasound: The right kidney measures 9.7 x 4.6 x 4.1 cm. Left kidney measures 9.7 x 4.6 x 4.4 cm. The kidneys are normal size. Renal cortical echogenicity is normal bilaterally. There is no hydronephrosis on the right on the left. There are no solid renal masses. The There is a Bosniak type 2 F cyst in the lower pole right kidney measuring up to 1.6 cm with nodular calcifications at its periphery. There is a Bosniak type 2 F cyst laterally at the mid pole left kidney containing layering echogenic debris. There is a 6 ml calcification in the lower pole of the left kidney. Bladder: With color Doppler assessment. Ureteral jets could not be identified into the bladder. However, there is no hydronephrosis. And debris was noted posteriorly in the bladder. The Impression: Bilateral renal cysts, Bosniak type 2 F. Calculus lower pole of the left kidney. Bilateral renal artery Doppler ultrasound: Renal Vascular Doppler Ultrasound: Right Kidney: Renal length the 9.7 cm. Extraparenchymal renal artery. Peak renal artery flow velocity the 253 cm/ sec Peak aortic velocity: 58.4 cm/sec Renal/aortic ratio: 4.3 Intraparenchymal renal arteries. Resistive index: upper pole 0.73 mid pole 0.7 wall lower pole 0.75 Acceleration time: upper pole 0.22 mid pole 0.22 lower pole 0.17 Left kidney: Renal length 9.7 cm. Extraparenchymal renal artery: Peak renal artery flow velocity: 120 cm/sec. Peak aortic velocity: 58.4 cm/sec Renal/aortic ratio: 2.1 Intraparenchymal renal arteries: Resistive index: Upper pole 0.72 mid pole 0.7 a lower pole 0.72 Acceleration time: Upper pole 0.052 mid pole 0.048 lower pole 0.046 Impression: The right renal artery peak flow velocity is elevated at its origin and the wave form has a parvus-tardus configuration. This is compatible with stenosis. There is no Doppler evidence of stenosis in the left renal artery. Electronically Signed by Sloan Mccollum MD 09/26/2019 11:18 A
== END ==
LOC: M RAD 08:38
PROVIDERS: ATTEND Surgery Vascular Surgery
DX: I70.1 Atherosclerosis of renal artery (principal)

== ENCOUNTER → 2020-04-24 | Outpatient (CLI) | payer MEDICARE, OTHER ==
--- NOTE | 2020-05-19 16:31 | REP ---
COMPLETE RENAL ULTRASOUND: CLINICAL: Renal arterial atherosclerotic disease. COMPARISON: 09/26/19 TECHNIQUE: Real time, ortiz scale and color evaluation using curved array transducer. FINDINGS: The right kidney measures 9.4 x 3.8 x 3.7 cm and includes a 1.4 cm lower pole complex cyst, unchanged without hydronephrosis. The left kidney measures 9.9 x 4.0 x 5.5 cm and includes suspected small nonobstructing calculus in the upper pole. Doppler interrogation as follows: RIGHT KIDNEY: Peak renal artery velocity: 206 cm/sec Renal aortic ratio: 4.1 Resistive indices: 0.54 - 0.74 Acceleration times: 0.030 - 0.034 Parvus tardus wave patterns noted. RIGHT KIDNEY: Peak renal artery velocity: 115 cm/sec Renal aortic ratio: 2.3 Resistive indices: 0.60 - 0.70 Acceleration times: 0.031 - 0.045 IMPRESSION: 1. Doppler interrogation again demonstrates findings to suggest moderate right renal arterial stenosis essentially unchanged from prior examination. 2. Complex cyst in the right kidney lower pole and presumed nonobstructing calculus in the left kidney upper pole. MTDD
== END ==
LOC: M RAD 08:28
PROVIDERS: ATTEND Surgery Vascular Surgery
DX: I70.1 Atherosclerosis of renal artery (principal); N28.1 Cyst of kidney, acquired

== ENCOUNTER → 2020-07-29 | Outpatient (CLI) | payer SELFPAY | LOC: M LABSMTC 08:23 | PROVIDERS: ATTEND Pediatrics | DX: Z11.59 Encounter for screening for other viral diseases (principal) ==

== ENCOUNTER → 2020-12-19 | Outpatient (CLI) | payer MEDICARE, OTHER ==
--- NOTE | 2020-12-19 10:34 | REP ---
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 COMPARISON: 04/24/2020. TECHNIQUE: Real-time sonographic evaluation of the kidneys is performed. Duplex Doppler evaluation of renal arteries performed. FINDINGS: Renal cortical echogenicity pattern is normal bilaterally and contours are smooth. There is no hydronephrosis. There is a cystic structure in the lower pole the right kidney with wall calcifications. The right kidney measures 9.5 x 4.4 x 3.6 cm. Left renal dimensions are 9.9 x 5.0 cm. The urinary bladder is empty. Duplex Doppler evaluation of renal arteries performed. Peak systolic velocity of the abdominal aorta at the level of the renal arteries is 77 centimeter/second. Peak systolic velocity at the origin of the main right renal artery is 191 centimeter/second. Renal to aortic ratio 2.5. Resistive indices of the right kidney range between 0.67 and 0.74. Acceleration times are greater than 0.300. Significant tardus parvus waveforms are again noted. Peak systolic velocity at the origin of the main left renal artery is 90 centimeters/second, renal to aortic ratio 1.2. Resistive indices left kidney range between 0.72 and 0.75. Acceleration times range between 0.034 and 0.042. The mid to distal renal arteries are obscured by overlying bowel gas. IMPRESSION: Limited exam due to bowel gas. There are again duplex Doppler sonographic findings compatible with significant stenosis of the proximal main right renal artery. <Electronically signed by Sloan Chavez > 12/19/20 [id number]
== END ==
LOC: M RAD 09:02
PROVIDERS: ATTEND Physician Assistant
DX: I70.1 Atherosclerosis of renal artery (principal)

== ENCOUNTER → 2021-07-15 | Outpatient (CLI) | payer SELFPAY | LOC: M LABSMTC 11:16 | PROVIDERS: ATTEND Pediatrics | DX: Z20.822 Contact with and (suspected) exposure to COVID-19 (principal) ==

== ENCOUNTER → 2021-09-03 | Outpatient (CLI) | payer MEDICARE, OTHER | LOC: M RAD 12:47 | PROVIDERS: ATTEND Psychiatry & Neurology Neurology | DX: I63.09 Cerebral infarction due to thrombosis of other precerebral artery (principal) ==

== ENCOUNTER → 2021-09-16 | Outpatient (REF) | payer MEDICARE, OTHER | LOC: M LAB REF 17:03 | PROVIDERS: ATTEND Nurse Practitioner Family | DX: E83.42 Hypomagnesemia (principal) ==

== ENCOUNTER → 2022-08-19 | Outpatient (CLI) | payer MEDICARE, OTHER | LOC: M RAD 14:01 | PROVIDERS: ATTEND Psychiatry & Neurology Neurology | DX: I63.09 Cerebral infarction due to thrombosis of other precerebral artery (principal) ==

== ENCOUNTER → 2022-10-06 | Outpatient (CLI) | payer MEDICARE, OTHER ==
[2022-10-06 17:34] LABS: ALBUMIN 3.4 G/DL (3.2-5.2); BILIRUBIN,TOTAL 0.6 MG/DL (0.3-1.2); CALCIUM LEVEL 9.1 MG/DL (8.3-10.6); CHOLESTEROL RISK RATIO 2.58 (<5); CREATININE FOR GFR 1.77 MG/DL (0.70-1.30); GLOMERULAR FILTRATION RATE 39.6 (>35); HDL CHOLESTEROL 56.9 MG/DL (>40); POTASSIUM SERUM 4.2 MMOL/L (3.5-5.1)
[2022-10-06 21:35] LABS: LDL CHOLESTEROL 67.5 MG/DL (<100); TOTAL PROTEIN 6.3 G/DL (5.7-8.2)
[2022-10-06 21:36] LABS: THYROID STIMULATING HORMONE 3.45 uIU/ML (0.55-4.78)
== END ==
LOC: M WUC 14:43
PROVIDERS: ATTEND Internal Medicine
DX: E78.5 Hyperlipidemia, unspecified (principal); I10 Essential (primary) hypertension

== ENCOUNTER → 2022-11-24 | Outpatient (REF) | payer MEDICARE, OTHER ==
[~2022-11-24] MED LIST changes: +AMLO1TAB24 PO; +ASPI81CH8 PO; +ATOR1TAB21 PO; +HYDR10TAB PO; +LEVO50TA5 PO; +PANT40TA29 PO; +POTA10CA33 PO
[2022-11-24 19:15] LABS: HEMATOCRIT 33.4 % (42.0-52.0); HEMOGLOBIN 10.4 g/dl (13.5-17.5); MEAN CORPUSCULAR HEMOGLOBIN 28.1 pg (27.0-33.0); MEAN CORPUSCULAR HGB CONC 31.1 g/dl (32.0-36.5); MEAN CORPUSCULAR VOLUME 90.3 fl (80.0-96.0); PLATELET COUNT, AUTOMATED 317 10^3/uL (150-450); WHITE BLOOD COUNT 7.8 10^3/uL (4.0-10.0)
[2022-11-24 19:39] LABS: ALBUMIN 3.6 G/DL (3.2-5.2); BILIRUBIN,TOTAL 0.4 MG/DL (0.3-1.2); CALCIUM LEVEL 8.7 MG/DL (8.3-10.6); CREATININE FOR GFR 1.72 MG/DL (0.70-1.30); GLOMERULAR FILTRATION RATE 40.9 (>35); POTASSIUM SERUM 3.8 MMOL/L (3.5-5.1); TOTAL PROTEIN 6.6 G/DL (5.7-8.2)
== END ==
LOC: M LAB REF 19:03
PROVIDERS: ATTEND Internal Medicine
DX: D62 Acute posthemorrhagic anemia (principal)

== ENCOUNTER → 2022-12-24 | Outpatient (CLI) | payer MEDICARE, OTHER ==
[2022-12-24 18:46] LABS: HEMATOCRIT 37.1 % (42.0-52.0); HEMOGLOBIN 11.7 g/dl (13.5-17.5); MEAN CORPUSCULAR HEMOGLOBIN 28.6 pg (27.0-33.0); MEAN CORPUSCULAR HGB CONC 31.5 g/dl (32.0-36.5); MEAN CORPUSCULAR VOLUME 90.7 fl (80.0-96.0); PLATELET COUNT, AUTOMATED 245 10^3/uL (150-450); RED BLOOD COUNT 4.09 10^6/uL (4.30-6.10); WHITE BLOOD COUNT 7.7 10^3/uL (4.0-10.0)
[2022-12-24 18:55] LABS: FERRITIN 17.7 NG/ML (10.5-307.3)
== END ==
LOC: M WUC 15:07
PROVIDERS: ATTEND Internal Medicine
DX: D62 Acute posthemorrhagic anemia (principal)

== ENCOUNTER → 2023-01-24 | Outpatient (CLI) | payer MEDICARE, OTHER ==
[2023-01-24 21:29] LABS: HEMATOCRIT 37.6 % (42.0-52.0); HEMOGLOBIN 12.2 g/dl (13.5-17.5); MEAN CORPUSCULAR HEMOGLOBIN 29.3 pg (27.0-33.0); MEAN CORPUSCULAR HGB CONC 32.4 g/dl (32.0-36.5); MEAN CORPUSCULAR VOLUME 90.4 fl (80.0-96.0); PLATELET COUNT, AUTOMATED 258 10^3/uL (150-450); RED BLOOD COUNT 4.16 10^6/uL (4.30-6.10); WHITE BLOOD COUNT 8.7 10^3/uL (4.0-10.0)
[2023-01-24 22:01] LABS: CALCIUM LEVEL 8.8 MG/DL (8.3-10.6); CREATININE FOR GFR 1.92 MG/DL (0.70-1.30); GLOMERULAR FILTRATION RATE 36.1 (>35); POTASSIUM SERUM 3.9 MMOL/L (3.5-5.1)
== END ==
LOC: M WUC 15:11
PROVIDERS: ATTEND Internal Medicine
DX: D62 Acute posthemorrhagic anemia (principal)

== ENCOUNTER → 2023-02-17 | Outpatient (CLI) | payer MEDICARE, OTHER ==
[~2023-02-17] MED LIST changes: -POTA10CA33 PO; +POTA10CA60 PO
== END ==
LOC: M RAD 12:45
PROVIDERS: ATTEND Nurse Practitioner Family
DX: N28.1 Cyst of kidney, acquired (principal)

== ENCOUNTER 2023-03-26 21:17 | Inpatient (IN) | payer MEDICARE, OTHER ==
[~2023-03-26] VITALS: Ht 170.2 cm; Wt 58.5 kg
[2023-03-26] MEDS ORDERED: NS 1,000 ML IV ONE (21:20)
[2023-03-26] MEDS ORDERED: PANTOPRAZOLE SODIUM 40 MG in D5W MINI-BAG PLUS 50 ML IV SCH (21:25)
[2023-03-26] MEDS ORDERED: METOCLOPRAMIDE INJ 10MG/2ML VIAL IV ONE (21:25)
[2023-03-26] MEDS ORDERED: OCTREOTIDE ACETATE 100MCG/ML VIAL **IV ADMINISTRATION ONLY IV ONE (21:25)
[2023-03-26 21:32] LABS: BASO % 0.1 % (0.0-1.0); EOS % 0.1 % (0.0-3.0); LYMPH # 1.2 10^3/uL (1.5-5.0); LYMPH % 7.2 % (24.0-44.0); MEAN CORPUSCULAR HEMOGLOBIN 31.8 pg (27.0-33.0); MEAN CORPUSCULAR HGB CONC 32.5 g/dl (32.0-36.5); MEAN CORPUSCULAR VOLUME 97.7 fl (80.0-96.0); MONO # 0.9 10^3/uL (0.0-0.8); MONO % 5.4 % (2.0-8.0); NEUTROPHILS # 13.9 10^3/uL (1.5-8.5); NEUTROPHILS % 85.8 % (36.0-66.0); PLATELET COUNT, AUTOMATED 180 10^3/uL (150-450); RED BLOOD COUNT 1.29 10^6/uL (4.30-6.10); WHITE BLOOD COUNT 16.2 10^3/uL (4.0-10.0)
[2023-03-26 21:35] LABS: HEMOGLOBIN 4.1 g/dl (13.5-17.5)
[2023-03-26 21:36] LABS: HEMATOCRIT 12.6 % (42.0-52.0)
[2023-03-26] MEDS ORDERED: OCTREOTIDE ACETATE 1,200 MCG in NS 238.8 ML IV SCH (22:00)
[2023-03-26 22:06] LABS: C REACTIVE PROTEIN QUANTITATIV < 0.40 MG/DL (<1.0)
[2023-03-26 22:09] LABS: ALBUMIN 2.2 G/DL (3.2-5.2); ALKALINE PHOSPHATASE 40 U/L (46-116); ALT/SGPT 19 U/L (7.0-40); AST/SGOT 22 U/L (<34); BILIRUBIN,TOTAL 0.2 MG/DL (0.3-1.2); BLOOD UREA NITROGEN 84 MG/DL (9-23); CALCIUM LEVEL 7.2 MG/DL (8.3-10.6); CARBON DIOXIDE LEVEL 15 MMOL/L (20-31); CHLORIDE LEVEL 104 MMOL/L (98-107); CK-MB VALUE MASS 3.1 NG/ML (<3.6); CREATININE FOR GFR 2.03 MG/DL (0.70-1.30); GLOMERULAR FILTRATION RATE 33.7 (>35); GLUCOSE, FASTING 215 MG/DL (74-106); MAGNESIUM LEVEL 1.9 MG/DL (1.8-2.4); POTASSIUM SERUM 3.7 MMOL/L (3.5-5.1); SODIUM LEVEL 138 MMOL/L (136-145); TOTAL PROTEIN 3.8 G/DL (5.7-8.2)
[2023-03-26 22:16] VITALS: BP 112/76; TEMP 98.8
[2023-03-26 22:32] LABS: CPK CREATINE PHOSPHOKINASE 153 U/L (46-171); MB/CK RELATIVE INDEX 2.02 (< OR =4)
[2023-03-26] MEDS ORDERED: VITA400T26 PO (22:54)
[2023-03-26] MEDS ORDERED: VITA100093 PO (22:54)
[2023-03-26] MEDS ORDERED: ATOR1TAB19 PO (22:54)
[2023-03-26] MEDS ORDERED: BAYE325T12 PO (22:54)
[2023-03-26] MEDS ORDERED: VITA500C24 PO (22:54)
[2023-03-26] MEDS ORDERED: HOME MED LIST COMPLETE! XX SCH (22:55)
[2023-03-26 22:57] LABS: MEAN CORPUSCULAR HEMOGLOBIN 31.3 pg (27.0-33.0); MEAN CORPUSCULAR HGB CONC 31.5 g/dl (32.0-36.5); MEAN CORPUSCULAR VOLUME 99.2 fl (80.0-96.0); PLATELET COUNT, AUTOMATED 173 10^3/uL (150-450); RED BLOOD COUNT 1.31 10^6/uL (4.30-6.10); WHITE BLOOD COUNT 15.6 10^3/uL (4.0-10.0)
[2023-03-26 23:01] LABS: RSV AMPLIFICATION NEGATIVE (NEGATIVE)
[2023-03-26 23:02] LABS: HEMOGLOBIN 4.1 g/dl (13.5-17.5)
[2023-03-26 23:08] LABS: INR 1.19; PROTHROMBIN TIME 15.4 SECONDS (12.5-14.5)
[2023-03-26] MEDS ORDERED: DEXTROSE 50% 50ML SYRINGE IV PRN (23:45)
[2023-03-26] MEDS ORDERED: PANTOPRAZOLE 40MG VIAL IV SCH (23:45)
[2023-03-26] MEDS ORDERED: GLUCOSE 4GM CHEW TABLET PO PRN (23:45)
[2023-03-26] MEDS ORDERED: GLUCAGON INJ 1MG VIAL SC PRN (23:45)
[2023-03-26 23:54] VITALS: BP 110/74; TEMP 98.8
[2023-03-27] VITALS (19 sets, daily range): BP systolic 118–147; BP diastolic 56–72; TEMP 97.5–99.6; O2SAT 88–98
[2023-03-27] MEDS: PANTOPRAZOLE SODIUM 40 MG in D5W 50 ML IV SCH ×2 (00:23→04:46)
[2023-03-27] MEDS: LR 1,000 ML IV SCH ×3 (00:56→21:58)
[2023-03-27 01:20] LABS: INR 1.12; PROTHROMBIN TIME 14.6 SECONDS (12.5-14.5)
[2023-03-27 01:32] LABS: CALCIUM LEVEL 7.5 MG/DL (8.3-10.6); CREATININE FOR GFR 2.04 MG/DL (0.70-1.30); GLOMERULAR FILTRATION RATE 33.5 (>35)
[2023-03-27] MEDS: INSULIN LISPRO (NovoLOG) PER UNIT SC SCH ×2 (06:00)
[2023-03-27] MEDS: LEVOTHYROXINE 50MCG TABLET (0.05MG) PO SCH (06:00)
[2023-03-27 07:58] LABS: HEMOGLOBIN 9.8 g/dl (13.5-17.5); MEAN CORPUSCULAR HEMOGLOBIN 31.6 pg (27.0-33.0); MEAN CORPUSCULAR VOLUME 90.3 fl (80.0-96.0); PLATELET COUNT, AUTOMATED 133 10^3/uL (150-450)
[2023-03-27] MEDS ORDERED: propofoL 200 MG/20 ML VIAL As Ordered ONE (08:04)
[2023-03-27] MEDS ORDERED: LIDOCAINE 2% 100MG/5ML SDV (FOR ANES.) As Ordered ONE (08:04)
[2023-03-27] MEDS ORDERED: fentaNYL 100 MCG/2 ML INJECTION As Ordered ONE (08:05)
[2023-03-27] MEDS ORDERED: PHENYLephrine 500MCG 5ML (100MCG/ML) SYRINGE As Ordered ONE (08:06)
[2023-03-27] MEDS ORDERED: GLYCOPYRROLATE INJ 0.2 MG/ML 2 ML VIAL As Ordered ONE (08:40)
[2023-03-27 08:46] LABS: ALBUMIN 2.4 G/DL (3.2-5.2); BILIRUBIN,TOTAL 1.2 MG/DL (0.3-1.2); CALCIUM LEVEL 7.7 MG/DL (8.3-10.6); CREATININE FOR GFR 2.08 MG/DL (0.70-1.30); GLOMERULAR FILTRATION RATE 32.8 (>35); MAGNESIUM LEVEL 1.8 MG/DL (1.8-2.4); POTASSIUM SERUM 4.4 MMOL/L (3.5-5.1); TOTAL PROTEIN 4.1 G/DL (5.7-8.2)
[2023-03-27 12:12] LABS: PROCALCITONIN 1.97 ng/ml
[2023-03-27] MEDS: SUCRALFATE SUSP 1GM/10ML UD PO SCH ×3 (12:41→23:12)
[2023-03-27] MEDS: PANTOPRAZOLE 40MG VIAL IV SCH (21:58)
[2023-03-28 04:35] LABS: BASO % 0.2 % (0.0-1.0); EOS % 0.3 % (0.0-3.0); HEMATOCRIT 22.6 % (42.0-52.0); HEMOGLOBIN 7.8 g/dl (13.5-17.5); LYMPH # 0.6 10^3/uL (1.5-5.0); LYMPH % 5.4 % (24.0-44.0); MEAN CORPUSCULAR HEMOGLOBIN 31.6 pg (27.0-33.0); MEAN CORPUSCULAR HGB CONC 34.5 g/dl (32.0-36.5); MEAN CORPUSCULAR VOLUME 91.5 fl (80.0-96.0); MONO # 0.7 10^3/uL (0.0-0.8); MONO % 5.8 % (2.0-8.0); NEUTROPHILS # 10.2 10^3/uL (1.5-8.5); NEUTROPHILS % 87.8 % (36.0-66.0); PLATELET COUNT, AUTOMATED 122 10^3/uL (150-450); RED BLOOD COUNT 2.47 10^6/uL (4.30-6.10); WHITE BLOOD COUNT 11.6 10^3/uL (4.0-10.0)
[2023-03-28 04:54] LABS: CALCIUM LEVEL 7.7 MG/DL (8.3-10.6); CREATININE FOR GFR 1.73 MG/DL (0.70-1.30); GLOMERULAR FILTRATION RATE 40.6 (>35); POTASSIUM SERUM 3.7 MMOL/L (3.5-5.1)
[2023-03-28] MEDS: LR 1,000 ML IV SCH (06:08)
[2023-03-28] MEDS: LEVOTHYROXINE 50MCG TABLET (0.05MG) PO SCH (06:08)
[2023-03-28] MEDS: SUCRALFATE SUSP 1GM/10ML UD PO SCH ×4 (06:08→23:10)
[2023-03-28 08:00] VITALS: BP 127/63; TEMP 99.1; O2SAT 96
[2023-03-28] MEDS: PANTOPRAZOLE 40MG VIAL IV SCH ×2 (10:02→20:46)
[2023-03-28 12:00] VITALS: BP 132/70; TEMP 98; O2SAT 96
[2023-03-28 13:28] LABS: HEMATOCRIT 23.4 % (42.0-52.0)
[2023-03-28 16:30] VITALS: BP 123/54; TEMP 99.1; O2SAT 94
[2023-03-28] MEDS ORDERED: ACETAMINOPHEN TAB 650MG DOSE (2X325MG) PO PRN (21:00)
[2023-03-28 22:00] VITALS: BP 132/56; TEMP 101.5; TEMP 101.9; O2SAT 96
[2023-03-28 22:21] VITALS: TEMP 100.9
[2023-03-29] VITALS (9 sets, daily range): BP systolic 111–135; BP diastolic 53–66; TEMP 98.5–99.5; O2SAT 94–97
[2023-03-29] MEDS: SUCRALFATE SUSP 1GM/10ML UD PO SCH ×3 (05:18→20:24)
[2023-03-29] MEDS: LEVOTHYROXINE 50MCG TABLET (0.05MG) PO SCH (05:18)
[2023-03-29 06:31] LABS: HEMATOCRIT 21.9 % (42.0-52.0); HEMOGLOBIN 7.4 g/dl (13.5-17.5); MEAN CORPUSCULAR HEMOGLOBIN 31.5 pg (27.0-33.0); MEAN CORPUSCULAR HGB CONC 33.8 g/dl (32.0-36.5); MEAN CORPUSCULAR VOLUME 93.2 fl (80.0-96.0); PLATELET COUNT, AUTOMATED 133 10^3/uL (150-450); RED BLOOD COUNT 2.35 10^6/uL (4.30-6.10); WHITE BLOOD COUNT 9.6 10^3/uL (4.0-10.0)
[2023-03-29 06:45] LABS: CALCIUM LEVEL 7.5 MG/DL (8.3-10.6); CREATININE FOR GFR 1.71 MG/DL (0.70-1.30); GLOMERULAR FILTRATION RATE 41.1 (>35); POTASSIUM SERUM 3.2 MMOL/L (3.5-5.1)
[2023-03-29] MEDS ORDERED: POTASSIUM CHLORIDE 10MEQ SR TABLET PO ONE (09:00)
[2023-03-29] MEDS: OMEPRAZOLE 20MG CAP PO SCH ×2 (10:08→20:23)
[2023-03-29 20:10] LABS: HEMATOCRIT 27.8 % (42.0-52.0)
[2023-03-29 20:17] LABS: HEMOGLOBIN 9.5 g/dl (13.5-17.5)
[2023-03-30 02:14] LABS: HEMATOCRIT 26.3 % (42.0-52.0)
[2023-03-30] MEDS: LEVOTHYROXINE 50MCG TABLET (0.05MG) PO SCH (05:03)
[2023-03-30 05:04] VITALS: BP 134/58; TEMP 99.7; O2SAT 95
[2023-03-30 06:10] LABS: HEMATOCRIT 27.1 % (42.0-52.0); HEMOGLOBIN 9.3 g/dl (13.5-17.5); MEAN CORPUSCULAR HEMOGLOBIN 31.1 pg (27.0-33.0); MEAN CORPUSCULAR HGB CONC 34.3 g/dl (32.0-36.5); MEAN CORPUSCULAR VOLUME 90.6 fl (80.0-96.0); PLATELET COUNT, AUTOMATED 150 10^3/uL (150-450); RED BLOOD COUNT 2.99 10^6/uL (4.30-6.10); WHITE BLOOD COUNT 8.6 10^3/uL (4.0-10.0)
[2023-03-30 06:46] LABS: CALCIUM LEVEL 7.1 MG/DL (8.3-10.6); CREATININE FOR GFR 1.56 MG/DL (0.70-1.30); GLOMERULAR FILTRATION RATE 45.7 (>35); POTASSIUM SERUM 3.6 MMOL/L (3.5-5.1)
[2023-03-30 08:15] LABS: HEMATOCRIT 26.7 % (42.0-52.0); HEMOGLOBIN 9.1 g/dl (13.5-17.5)
[2023-03-30] MEDS: SUCRALFATE SUSP 1GM/10ML UD PO SCH (08:45)
[2023-03-30] MEDS: OMEPRAZOLE 20MG CAP PO SCH (08:45)
[2023-03-30] MEDS ORDERED: ASPI81TA26 PO (11:20)
[2023-03-30] MEDS ORDERED: SUCR1ORA PO (11:43)
[2023-03-30] MEDS ORDERED: OMEP40CA4 PO (11:43)
[2023-03-30 14:58] LABS: HEMATOCRIT 33.7 % (42.0-52.0); HEMOGLOBIN 11.5 g/dl (13.5-17.5)
== END 2023-03-30 14:06 | disposition home or self-care (01) | DRG 381 ==
LOC: M ED 21:17 → M ED INP 22:27 → M ICU 03-27 00:40 → M MSPAV 03-28 16:30
PROVIDERS: ADMIT Internal Medicine; ATTEND Internal Medicine
PROC: 30233N1 Transfusion of Nonautologous Red Blood Cells into Peripheral Vein, Percutaneous Approach (ICD-10-PCS; 2023-03-26)
PROC: 0DB48ZX Excision of Esophagogastric Junction, Via Natural or Artificial Opening Endoscopic, Diagnostic (ICD-10-PCS; principal; 2023-03-27 09:15)
DX: K22.11 Ulcer of esophagus with bleeding (principal); D62 Acute posthemorrhagic anemia; E03.9 Hypothyroidism, unspecified; I12.9 Hypertensive chronic kidney disease with stage 1 through stage 4 chronic kidney disease, or unspecified chronic kidney disease; K44.9 Diaphragmatic hernia without obstruction or gangrene; D49.0 Neoplasm of unspecified behavior of digestive system; R55 Syncope and collapse; R53.1 Weakness; K21.9 Gastro-esophageal reflux disease without esophagitis; R50.9 Fever, unspecified; N18.9 Chronic kidney disease, unspecified; K92.0 Hematemesis; Z86.73 Personal history of transient ischemic attack (TIA), and cerebral infarction without residual deficits; Z87.442 Personal history of urinary calculi; Z79.82 Long term (current) use of aspirin; Z79.890 Hormone replacement therapy; Z79.899 Other long term (current) drug therapy

== ENCOUNTER → 2023-04-19 | Outpatient (CLI) | payer MEDICARE, OTHER ==
[~2023-04-19] MED LIST changes: +BAYE325T12 PO; +OMEP40CA4 PO; +SUCR1ORA PO; +VITA100093 PO; +VITA400T26 PO; +VITA500C24 PO
[2023-04-19 17:11] LABS: HEMOGLOBIN 11.5 g/dl (13.5-17.5); MEAN CORPUSCULAR HEMOGLOBIN 29.9 pg (27.0-33.0); MEAN CORPUSCULAR HGB CONC 31.9 g/dl (32.0-36.5); MEAN CORPUSCULAR VOLUME 93.8 fl (80.0-96.0); PLATELET COUNT, AUTOMATED 287 10^3/uL (150-450); RED BLOOD COUNT 3.84 10^6/uL (4.30-6.10); WHITE BLOOD COUNT 7.1 10^3/uL (4.0-10.0)
[2023-04-19 17:41] LABS: ALBUMIN 3.4 G/DL (3.2-5.2); BILIRUBIN,TOTAL 0.4 MG/DL (0.3-1.2); CALCIUM LEVEL 8.7 MG/DL (8.3-10.6); CREATININE FOR GFR 1.93 MG/DL (0.70-1.30); GLOMERULAR FILTRATION RATE 35.7 (>35); POTASSIUM SERUM 3.5 MMOL/L (3.5-5.1); TOTAL PROTEIN 6.2 G/DL (5.7-8.2)
== END ==
LOC: M WUC 11:57
PROVIDERS: ATTEND Internal Medicine
DX: D62 Acute posthemorrhagic anemia (principal)

== ENCOUNTER 2023-05-31 17:42 | Observation (INO) | payer MEDICARE, OTHER ==
[2023-05-31] VITALS (7 sets, daily range): BP systolic 129–155; BP diastolic 62–74; TEMP 99–99.5; O2SAT 95–97
[~2023-05-31] VITALS: Ht 167.6 cm; Wt 58.3 kg
[2023-05-31 18:59] LABS: BASO # 0.1 10^3/uL (0.0-0.2); BASO % 0.9 % (0.0-1.0); EOS # 0.4 10^3/uL (0.0-0.5); EOS % 5.1 % (0.0-3.0); HEMATOCRIT 23.3 % (42.0-52.0); HEMOGLOBIN 7.4 g/dl (13.5-17.5); LYMPH # 1.1 10^3/uL (1.5-5.0); MEAN CORPUSCULAR HEMOGLOBIN 30.6 pg (27.0-33.0); MEAN CORPUSCULAR HGB CONC 31.8 g/dl (32.0-36.5); MEAN CORPUSCULAR VOLUME 96.3 fl (80.0-96.0); MONO # 0.7 10^3/uL (0.0-0.8); MONO % 9.1 % (2.0-8.0); NEUTROPHILS # 5.5 10^3/uL (1.5-8.5); NEUTROPHILS % 70.8 % (36.0-66.0); PLATELET COUNT, AUTOMATED 382 10^3/uL (150-450); RED BLOOD COUNT 2.42 10^6/uL (4.30-6.10); WHITE BLOOD COUNT 7.7 10^3/uL (4.0-10.0)
[2023-05-31 19:02] LABS: INR 0.94; PROTHROMBIN TIME 12.3 SECONDS (12.5-14.5)
[2023-05-31 19:03] LABS: PARTIAL THROMBOPLASTIN TIME 24.6 SECONDS (24.8-34.2)
[2023-05-31 19:05] LABS: ALBUMIN 3.3 G/DL (3.2-5.2); ALKALINE PHOSPHATASE 78 U/L (46-116); ALT/SGPT 31 U/L (7.0-40); AST/SGOT 28 U/L (<34); BILIRUBIN,DIRECT 0.1 MG/DL (<0.4); BILIRUBIN,TOTAL 0.3 MG/DL (0.3-1.2); BLOOD UREA NITROGEN 25 MG/DL (9-23); CALCIUM LEVEL 8.3 MG/DL (8.3-10.6); CARBON DIOXIDE LEVEL 25 MMOL/L (20-31); CHLORIDE LEVEL 106 MMOL/L (98-107); CREATININE FOR GFR 1.88 MG/DL (0.70-1.30); GLOMERULAR FILTRATION RATE 36.8 (>35); GLUCOSE, FASTING 95 MG/DL (74-106); POTASSIUM SERUM 3.8 MMOL/L (3.5-5.1); SODIUM LEVEL 140 MMOL/L (136-145); TOTAL PROTEIN 5.9 G/DL (5.7-8.2)
[2023-05-31] MEDS ORDERED: ACETAMINOPHEN TAB 650MG DOSE (2X325MG) PO PRN (20:05)
[2023-05-31 20:27] LABS: RSV AMPLIFICATION NEGATIVE (NEGATIVE)
[2023-05-31 20:44] LABS: IRON (FE) 110 UG/DL (65-175); PERCENT SATURATION 31.3 % (19.7-50.0); TOTAL IRON BINDING CAPACITY 352 UG/DL (250-425)
[2023-05-31 20:47] LABS: FOLATE > 24.0 NG/ML (>5.4); VITAMIN B12 LEVEL 424 PG/ML (211-911)
[2023-05-31] MEDS ORDERED: MED REC IN PROGRESS XX SCH (20:55)
[2023-05-31] MEDS: SUCRALFATE 1 GM TAB PO SCH (21:07)
[2023-05-31] MEDS: PANTOPRAZOLE 40MG VIAL IV SCH (21:07)
[2023-05-31] MEDS ORDERED: OMEP-173 PO (21:28)
[2023-05-31] MEDS ORDERED: IRON65TA2 PO (21:30)
[2023-05-31] MEDS ORDERED: VITA200T8 PO (21:32)
[2023-05-31] MEDS ORDERED: GARL200T2 PO (21:36)
[2023-05-31] MEDS ORDERED: ASPI81CH33 PO (21:39)
[2023-05-31] MEDS ORDERED: HOME MED LIST COMPLETE! XX SCH (21:40)
[2023-05-31] MEDS: ATORVASTATIN 10 MG TAB PO SCH (23:04)
[2023-05-31] MEDS: **hydrALAZINE** 10 MG TAB PO SCH (23:05)
[2023-06-01] VITALS: BP 116/62; TEMP 97.5; O2SAT 96
[2023-06-01 01:48] LABS: HEMOGLOBIN 7.5 g/dl (13.5-17.5)
[2023-06-01 03:32] LABS: HEMATOCRIT 25.8 % (42.0-52.0); HEMOGLOBIN 8.4 g/dl (13.5-17.5); MEAN CORPUSCULAR HEMOGLOBIN 30.5 pg (27.0-33.0); MEAN CORPUSCULAR HGB CONC 32.6 g/dl (32.0-36.5); MEAN CORPUSCULAR VOLUME 93.8 fl (80.0-96.0); PLATELET COUNT, AUTOMATED 286 10^3/uL (150-450); RED BLOOD COUNT 2.75 10^6/uL (4.30-6.10); WHITE BLOOD COUNT 6.8 10^3/uL (4.0-10.0)
[2023-06-01 03:45] LABS: CALCIUM LEVEL 7.9 MG/DL (8.3-10.6); CREATININE FOR GFR 1.92 MG/DL (0.70-1.30); POTASSIUM SERUM 3.5 MMOL/L (3.5-5.1)
[2023-06-01] MEDS: LEVOTHYROXINE 50MCG TABLET (0.05MG) PO SCH (05:08)
[2023-06-01 05:34] VITALS: BP 110/52; TEMP 99.3; O2SAT 96
[2023-06-01] MEDS: POTASSIUM CHLORIDE 10MEQ SR TABLET PO SCH (09:08)
[2023-06-01] MEDS: FERROUS SULFATE 325MG TAB PO SCH (09:08)
[2023-06-01] MEDS: SUCRALFATE 1 GM TAB PO SCH ×4 (09:08→21:25)
[2023-06-01] MEDS: PANTOPRAZOLE 40MG VIAL IV SCH ×2 (09:08→21:23)
[2023-06-01] MEDS: amLODIPine 5 MG TAB PO SCH (09:09)
[2023-06-01] MEDS: **hydrALAZINE** 10 MG TAB PO SCH ×2 (09:09→21:25)
[2023-06-01 09:34] LABS: HEMATOCRIT 24.5 % (42.0-52.0)
[2023-06-01 17:20] LABS: HEMATOCRIT 25.2 % (42.0-52.0); HEMOGLOBIN 8.2 g/dl (13.5-17.5)
[2023-06-01 20:00] VITALS: BP 120/65; TEMP 99.3; O2SAT 94
[2023-06-01] MEDS: ATORVASTATIN 10 MG TAB PO SCH (21:25)
[2023-06-02 04:13] VITALS: BP 123/60; TEMP 99.3; O2SAT 95
[2023-06-02] MEDS: LEVOTHYROXINE 50MCG TABLET (0.05MG) PO SCH (05:33)
[2023-06-02 06:34] LABS: BASO # 0.1 10^3/uL (0.0-0.2); BASO % 1.4 % (0.0-1.0); CALCIUM LEVEL 8.2 MG/DL (8.3-10.6); CREATININE FOR GFR 1.64 MG/DL (0.70-1.30); EOS # 0.5 10^3/uL (0.0-0.5); EOS % 7.6 % (0.0-3.0); GLOMERULAR FILTRATION RATE 43.1 (>35); HEMOGLOBIN 8.1 g/dl (13.5-17.5); LYMPH # 0.8 10^3/uL (1.5-5.0); MEAN CORPUSCULAR HEMOGLOBIN 30.5 pg (27.0-33.0); MEAN CORPUSCULAR HGB CONC 32.4 g/dl (32.0-36.5); MONO # 0.6 10^3/uL (0.0-0.8); MONO % 9.3 % (2.0-8.0); NEUTROPHILS # 4.6 10^3/uL (1.5-8.5); NEUTROPHILS % 69.5 % (36.0-66.0); PLATELET COUNT, AUTOMATED 257 10^3/uL (150-450); POTASSIUM SERUM 3.7 MMOL/L (3.5-5.1); RED BLOOD COUNT 2.66 10^6/uL (4.30-6.10); WHITE BLOOD COUNT 6.6 10^3/uL (4.0-10.0)
[2023-06-02] MEDS: **hydrALAZINE** 10 MG TAB PO SCH ×2 (09:00→09:40)
[2023-06-02] MEDS: POTASSIUM CHLORIDE 10MEQ SR TABLET PO SCH (09:39)
[2023-06-02 09:40] VITALS: BP 128/52
[2023-06-02] MEDS: amLODIPine 5 MG TAB PO SCH (09:40)
[2023-06-02] MEDS: SUCRALFATE 1 GM TAB PO SCH (09:40)
[2023-06-02] MEDS: FERROUS SULFATE 325MG TAB PO SCH (09:40)
[2023-06-02] MEDS: PANTOPRAZOLE 40MG VIAL IV SCH (10:39)
[2023-06-02] MEDS ORDERED: SUCR1TA PO (10:50)
[2023-06-02] MEDS ORDERED: PANT40IN4 PO (10:50)
== END 2023-06-02 11:46 | disposition home or self-care (01) ==
LOC: M ED 17:42 → M ED INP 17:43 → M MSPAV 22:30
PROVIDERS: ADMIT Internal Medicine; ATTEND Internal Medicine
DX: K31.A0 Gastric intestinal metaplasia, unspecified (principal); K22.70 Barrett's esophagus without dysplasia; K44.9 Diaphragmatic hernia without obstruction or gangrene; K22.2 Esophageal obstruction; D37.8 Neoplasm of uncertain behavior of other specified digestive organs; D50.9 Iron deficiency anemia, unspecified; D62 Acute posthemorrhagic anemia; I12.9 Hypertensive chronic kidney disease with stage 1 through stage 4 chronic kidney disease, or unspecified chronic kidney disease; E78.5 Hyperlipidemia, unspecified; N18.32 Chronic kidney disease, stage 3b; Z86.73 Personal history of transient ischemic attack (TIA), and cerebral infarction without residual deficits; Z79.899 Other long term (current) drug therapy; Z79.82 Long term (current) use of aspirin; Z79.890 Hormone replacement therapy
CPT/HCPCS: 36415; 36430; 43239; 80048; 80076; 82607; 82728; 82746; 83550; 83735; 85014; 85018; 85025; 85027; 85610; 85730; 86850; 86900; 86901; 86920; 87631; 88305; 93041; 96374; 96376; 99285; C9113; G0378; P9016

== ENCOUNTER → 2023-06-10 | Outpatient (CLI) | payer MEDICARE, OTHER ==
[~2023-06-10] MED LIST changes: +ASPI81CH33 PO; +GARL200T2 PO; +IRON65TA2 PO; +OMEP-173 PO; +PANT40IN4 PO; +SUCR1TA PO; +VITA200T8 PO
[2023-06-10 16:23] LABS: BASO # 0.1 10^3/uL (0.0-0.2); BASO % 2.3 % (0.0-1.0); EOS # 0.7 10^3/uL (0.0-0.5); EOS % 11.1 % (0.0-3.0); HEMATOCRIT 34.6 % (42.0-52.0); HEMOGLOBIN 10.9 g/dl (13.5-17.5); LYMPH # 0.9 10^3/uL (1.5-5.0); LYMPH % 15.2 % (24.0-44.0); MEAN CORPUSCULAR HEMOGLOBIN 30.1 pg (27.0-33.0); MEAN CORPUSCULAR HGB CONC 31.5 g/dl (32.0-36.5); MEAN CORPUSCULAR VOLUME 95.6 fl (80.0-96.0); MONO # 0.5 10^3/uL (0.0-0.8); MONO % 7.8 % (2.0-8.0); NEUTROPHILS # 3.9 10^3/uL (1.5-8.5); NEUTROPHILS % 63.3 % (36.0-66.0); PLATELET COUNT, AUTOMATED 365 10^3/uL (150-450); RED BLOOD COUNT 3.62 10^6/uL (4.30-6.10); WHITE BLOOD COUNT 6.1 10^3/uL (4.0-10.0)
== END ==
LOC: M WUC 13:32
PROVIDERS: ATTEND Internal Medicine Gastroenterology
DX: D64.9 Anemia, unspecified (principal)

== ENCOUNTER 2023-06-21 09:50 | Day surgery (SDC) | payer MEDICARE, OTHER ==
[~2023-06-21] VITALS: Ht 167.6 cm; Wt 56.7 kg
[2023-06-21] MEDS ORDERED: propofoL 200 MG/20 ML VIAL As Ordered ONE (10:36)
[2023-06-21] MEDS ORDERED: GLYCOPYRROLATE INJ 0.2 MG/ML 2 ML VIAL As Ordered ONE (10:49)
[2023-06-21 11:55] VITALS: BP 157/73; O2SAT 100
== END 2023-06-21 12:18 | disposition home or self-care (01) ==
LOC: M OPP 09:50
PROVIDERS: ATTEND Internal Medicine Gastroenterology
DX: D12.4 Benign neoplasm of descending colon (principal); K57.30 Diverticulosis of large intestine without perforation or abscess without bleeding; K64.8 Other hemorrhoids; D50.0 Iron deficiency anemia secondary to blood loss (chronic); Z86.73 Personal history of transient ischemic attack (TIA), and cerebral infarction without residual deficits; Z79.02 Long term (current) use of antithrombotics/antiplatelets; Z79.82 Long term (current) use of aspirin; Z79.890 Hormone replacement therapy; Z79.899 Other long term (current) drug therapy

== ENCOUNTER → 2023-07-05 | Outpatient (REF) | payer MEDICARE, OTHER ==
[2023-07-05 20:00] LABS: HEMATOCRIT 36.8 % (42.0-52.0); HEMOGLOBIN 11.7 g/dl (13.5-17.5); MEAN CORPUSCULAR HEMOGLOBIN 29.6 pg (27.0-33.0); MEAN CORPUSCULAR HGB CONC 31.8 g/dl (32.0-36.5); MEAN CORPUSCULAR VOLUME 93.2 fl (80.0-96.0); PLATELET COUNT, AUTOMATED 334 10^3/uL (150-450); RED BLOOD COUNT 3.95 10^6/uL (4.30-6.10); WHITE BLOOD COUNT 6.6 10^3/uL (4.0-10.0)
[2023-07-05 20:26] LABS: CALCIUM LEVEL 8.6 MG/DL (8.3-10.6); CREATININE FOR GFR 1.71 MG/DL (0.70-1.30); GLOMERULAR FILTRATION RATE 41.1 (>35); POTASSIUM SERUM 3.5 MMOL/L (3.5-5.1)
== END ==
LOC: M LAB REF 19:42
PROVIDERS: ATTEND Internal Medicine
DX: D62 Acute posthemorrhagic anemia (principal)

== ENCOUNTER → 2023-08-05 | Outpatient (CLI) | payer MEDICARE, OTHER ==
[2023-08-05 16:56] LABS: BASO # 0.1 10^3/uL (0.0-0.2); BASO % 1.5 % (0.0-1.0); EOS # 0.6 10^3/uL (0.0-0.5); EOS % 8.8 % (0.0-3.0); HEMATOCRIT 41.6 % (42.0-52.0); HEMOGLOBIN 13.2 g/dl (13.5-17.5); LYMPH % 13.6 % (24.0-44.0); MEAN CORPUSCULAR HEMOGLOBIN 29.5 pg (27.0-33.0); MEAN CORPUSCULAR HGB CONC 31.7 g/dl (32.0-36.5); MEAN CORPUSCULAR VOLUME 93.1 fl (80.0-96.0); MONO # 0.7 10^3/uL (0.0-0.8); MONO % 9.8 % (2.0-8.0); NEUTROPHILS # 4.8 10^3/uL (1.5-8.5); NEUTROPHILS % 65.9 % (36.0-66.0); PLATELET COUNT, AUTOMATED 271 10^3/uL (150-450); RED BLOOD COUNT 4.47 10^6/uL (4.30-6.10); WHITE BLOOD COUNT 7.3 10^3/uL (4.0-10.0)
[2023-08-05 17:15] LABS: ALBUMIN 3.8 G/DL (3.2-5.2); BILIRUBIN,TOTAL 0.4 MG/DL (0.3-1.2); CALCIUM LEVEL 9.5 MG/DL (8.3-10.6); CREATININE FOR GFR 1.77 MG/DL (0.70-1.30); GLOMERULAR FILTRATION RATE 39.5 (>35); POTASSIUM SERUM 3.8 MMOL/L (3.5-5.1); TOTAL PROTEIN 6.6 G/DL (5.7-8.2)
== END ==
LOC: M WUC 14:08
PROVIDERS: ATTEND Internal Medicine
DX: D62 Acute posthemorrhagic anemia (principal)

== ENCOUNTER → 2023-08-10 | Outpatient (CLI) | payer MEDICARE, OTHER ==
[~2023-08-10] MED LIST changes: +E-Z-PAQUE 96% w/w SUSP 176GM BTL As Ordered ONE
== END ==
LOC: M RAD 08:14
PROVIDERS: ATTEND Internal Medicine Gastroenterology
DX: Z53.9 Procedure and treatment not carried out, unspecified reason (principal)

== ENCOUNTER → 2023-10-07 | Outpatient (REF) | payer MEDICARE, OTHER ==
[~2023-10-07] MED LIST changes: -E-Z-PAQUE 96% w/w SUSP 176GM BTL As Ordered ONE; +HYDR-161 PO; -HYDR10TAB PO
[2023-10-07 18:28] LABS: BASO # 0.1 10^3/uL (0.0-0.2); EOS # 0.5 10^3/uL (0.0-0.5); EOS % 4.7 % (0.0-3.0); HEMATOCRIT 41.2 % (42.0-52.0); HEMOGLOBIN 13.6 g/dl (13.5-17.5); LYMPH # 0.9 10^3/uL (1.5-5.0); LYMPH % 8.9 % (24.0-44.0); MEAN CORPUSCULAR HEMOGLOBIN 30.5 pg (27.0-33.0); MEAN CORPUSCULAR VOLUME 92.4 fl (80.0-96.0); MONO # 0.8 10^3/uL (0.0-0.8); NEUTROPHILS # 7.7 10^3/uL (1.5-8.5); NEUTROPHILS % 77.2 % (36.0-66.0); PLATELET COUNT, AUTOMATED 266 10^3/uL (150-450); RED BLOOD COUNT 4.46 10^6/uL (4.30-6.10); WHITE BLOOD COUNT 9.9 10^3/uL (4.0-10.0)
[2023-10-07 18:40] LABS: BILIRUBIN,TOTAL 0.5 MG/DL (0.3-1.2); CALCIUM LEVEL 8.8 MG/DL (8.3-10.6); CHOLESTEROL RISK RATIO 3.2 (<5); CREATININE FOR GFR 1.79 MG/DL (0.70-1.30); HDL CHOLESTEROL 45.5 MG/DL (>40); LDL CHOLESTEROL 72.7 MG/DL (<100); NON-HDL-C 100.5 MG/DL; POTASSIUM SERUM 4.1 MMOL/L (3.5-5.1); TOTAL PROTEIN 6.8 G/DL (5.7-8.2)
[2023-10-07 18:46] LABS: THYROID STIMULATING HORMONE 1.937 uIU/ML (0.55-4.78)
== END ==
LOC: M LABWUC 17:46
PROVIDERS: ATTEND Internal Medicine
DX: N18.9 Chronic kidney disease, unspecified (principal); E03.9 Hypothyroidism, unspecified; E78.5 Hyperlipidemia, unspecified

== ENCOUNTER 2023-11-21 15:45 | Emergency (ER) | payer MEDICARE, OTHER ==
[~2023-11-21] VITALS: Ht 167.6 cm; Wt 59.5 kg
[2023-11-21 16:55] LABS: BASO # 0.1 10^3/uL (0.0-0.2); BASO % 0.4 % (0.0-1.0); EOS % 0.1 % (0.0-3.0); HEMATOCRIT 39.7 % (42.0-52.0); HEMOGLOBIN 13.5 g/dl (13.5-17.5); LYMPH # 0.4 10^3/uL (1.5-5.0); LYMPH % 3.1 % (24.0-44.0); MEAN CORPUSCULAR HEMOGLOBIN 31.8 pg (27.0-33.0); MEAN CORPUSCULAR VOLUME 93.6 fl (80.0-96.0); MONO # 0.8 10^3/uL (0.0-0.8); MONO % 5.5 % (2.0-8.0); NEUTROPHILS # 12.4 10^3/uL (1.5-8.5); NEUTROPHILS % 90.4 % (36.0-66.0); PLATELET COUNT, AUTOMATED 261 10^3/uL (150-450); RED BLOOD COUNT 4.24 10^6/uL (4.30-6.10); WHITE BLOOD COUNT 13.7 10^3/uL (4.0-10.0)
[2023-11-21 17:22] LABS: ALBUMIN 3.6 G/DL (3.2-5.2); BILIRUBIN,DIRECT 0.3 MG/DL (<0.4); BILIRUBIN,TOTAL 0.8 MG/DL (0.3-1.2); CALCIUM LEVEL 9.2 MG/DL (8.3-10.6); CREATININE FOR GFR 3.49 MG/DL (0.70-1.30); POTASSIUM SERUM 4.3 MMOL/L (3.5-5.1); TOTAL PROTEIN 6.6 G/DL (5.7-8.2)
[2023-11-21 21:34] VITALS: BP 151/86; TEMP 98.4; O2SAT 95
[2023-11-22] MEDS ORDERED: PANT-23 PO (22:42)
[2023-11-22] MEDS ORDERED: POLY510P14 PO (22:42)
== END 2023-11-21 21:35 | disposition left against medical advice (07) ==
LOC: M ED 15:45
DX: N13.9 Obstructive and reflux uropathy, unspecified (principal); N17.9 Acute kidney failure, unspecified; Z53.9 Procedure and treatment not carried out, unspecified reason; K59.00 Constipation, unspecified; I10 Essential (primary) hypertension; E03.9 Hypothyroidism, unspecified; K21.9 Gastro-esophageal reflux disease without esophagitis; E78.5 Hyperlipidemia, unspecified; Z87.442 Personal history of urinary calculi; Z79.82 Long term (current) use of aspirin; Z79.899 Other long term (current) drug therapy

== ENCOUNTER 2023-11-29 16:59 | Inpatient (IN) | payer MEDICARE, OTHER ==
[~2023-11-29] VITALS: Ht 172.7 cm; Wt 59.0 kg
[~2023-11-29 16:59] MED LIST changes: +FLOM0.4C39 PO; +LOVE1INJ2 SC; +PANT-23 PO; +POLY510P14 PO; +SENN-52 PO
[2023-11-29] MEDS ORDERED: BISACODYL 10MG SUPP PR PRN (17:05)
[2023-11-29] MEDS ORDERED: ONDANSETRON 4MG TAB PO PRN (17:05)
[2023-11-29] MEDS ORDERED: traMADol 50 MG TAB PO PRN (17:05)
[2023-11-29 17:50] VITALS: BP 168/85; TEMP 98.3; O2SAT 97
[2023-11-29] MEDS: ATORVASTATIN 10 MG TAB PO SCH (20:38)
[2023-11-29] MEDS: RAMELTEON 8 MG TAB (ROZEREM) PO PRN (20:38)
[2023-11-29] MEDS: TAMSULOSIN 0.4 MG CAP PO SCH (20:38)
[2023-11-29] MEDS: SENNA 8.6 MG TAB (SENOKOT) PO SCH (20:39)
[2023-11-29] MEDS: **hydrALAZINE** 10 MG TAB PO SCH (20:39)
[2023-11-30 05:30] VITALS: BP 147/74; TEMP 98.2; O2SAT 95
[2023-11-30 06:53] LABS: BASO % 0.3 % (0.0-1.0); EOS # 0.3 10^3/uL (0.0-0.5); EOS % 2.8 % (0.0-3.0); HEMATOCRIT 30.1 % (42.0-52.0); HEMOGLOBIN 10.3 g/dl (13.5-17.5); LYMPH # 0.7 10^3/uL (1.5-5.0); LYMPH % 7.8 % (24.0-44.0); MEAN CORPUSCULAR HEMOGLOBIN 31.6 pg (27.0-33.0); MEAN CORPUSCULAR HGB CONC 34.2 g/dl (32.0-36.5); MEAN CORPUSCULAR VOLUME 92.3 fl (80.0-96.0); MONO % 10.5 % (2.0-8.0); NEUTROPHILS # 7.1 10^3/uL (1.5-8.5); NEUTROPHILS % 77.8 % (36.0-66.0); PLATELET COUNT, AUTOMATED 285 10^3/uL (150-450); RED BLOOD COUNT 3.26 10^6/uL (4.30-6.10); WHITE BLOOD COUNT 9.1 10^3/uL (4.0-10.0)
[2023-11-30 07:21] LABS: CALCIUM LEVEL 7.6 MG/DL (8.3-10.6); CREATININE FOR GFR 1.47 MG/DL (0.70-1.30); GLOMERULAR FILTRATION RATE 48.9 (>35); POTASSIUM SERUM 3.4 MMOL/L (3.5-5.1)
[2023-11-30 07:24] LABS: THYROID STIMULATING HORMONE 12.054 uIU/ML (0.55-4.78); TOTAL 25(OH) VITAMIN D 33.9 NG/ML (20.0-100.0)
[2023-11-30] MEDS: MIRALAX *UNIT DOSE* 17GM PACKET PO SCH (07:25)
[2023-11-30] MEDS: ASPIRIN 81MG CHEW TABLET PO SCH (07:25)
[2023-11-30] MEDS: amLODIPine 5 MG TAB PO SCH (07:26)
[2023-11-30] MEDS: PANTOPRAZOLE 40MG TAB (PROTONIX) PO SCH (07:26)
[2023-11-30] MEDS: VITAMIN D 1,000 INTERNATIONAL UNITS TABLET PO SCH (07:26)
[2023-11-30] MEDS: ENOXAPARIN 30MG/0.3ML SYRINGE (J1650 PER 10MG) SC SCH (07:27)
[2023-11-30 14:00] VITALS: BP 109/62; TEMP 98; O2SAT 95
[2023-11-30 20:00] VITALS: BP 134/61; TEMP 98.8; O2SAT 94
[2023-11-30] MEDS: LEVOTHYROXINE 50MCG TABLET (0.05MG) PO SCH (20:27)
[2023-12-01 06:00] VITALS: BP 149/71; TEMP 98.3; O2SAT 93
[2023-12-01 07:12] LABS: FREE T4 1.17 NG/DL (0.89-1.76); THYROID STIMULATING HORMONE 10.909 uIU/ML (0.55-4.78)
[2023-12-01 07:23] LABS: FREE T3 2.1 PG/ML (2.3-4.2)
[2023-12-01] MEDS: ASPIRIN 81MG CHEW TABLET PO SCH (07:51)
[2023-12-01 14:00] VITALS: BP 137/70; TEMP 98.1; O2SAT 98
[2023-12-01 19:27] VITALS: BP 130/66; TEMP 98.6; O2SAT 97
[2023-12-02 05:20] VITALS: BP 173/86; TEMP 98.4; O2SAT 98
[2023-12-02 06:28] LABS: HEMATOCRIT 28.4 % (42.0-52.0); HEMOGLOBIN 9.6 g/dl (13.5-17.5); MEAN CORPUSCULAR HGB CONC 33.8 g/dl (32.0-36.5); MEAN CORPUSCULAR VOLUME 91.6 fl (80.0-96.0); PLATELET COUNT, AUTOMATED 343 10^3/uL (150-450); WHITE BLOOD COUNT 9.3 10^3/uL (4.0-10.0)
[2023-12-02 14:00] VITALS: BP 131/73; TEMP 98.8; O2SAT 95
[2023-12-02 20:00] VITALS: BP 138/63; TEMP 98.6; O2SAT 98
[2023-12-03 06:00] VITALS: BP 153/78; TEMP 98.2; O2SAT 98
[2023-12-03 14:00] VITALS: BP 149/69; TEMP 98.2; O2SAT 98
[2023-12-03 19:35] VITALS: BP 154/87; TEMP 98.6; O2SAT 97
[2023-12-04 06:10] VITALS: BP 144/75; TEMP 98.4; O2SAT 97
[2023-12-04 07:27] LABS: HEMATOCRIT 30.4 % (42.0-52.0); MEAN CORPUSCULAR HEMOGLOBIN 31.1 pg (27.0-33.0); MEAN CORPUSCULAR HGB CONC 32.9 g/dl (32.0-36.5); MEAN CORPUSCULAR VOLUME 94.4 fl (80.0-96.0); PLATELET COUNT, AUTOMATED 422 10^3/uL (150-450); RED BLOOD COUNT 3.22 10^6/uL (4.30-6.10); WHITE BLOOD COUNT 10.8 10^3/uL (4.0-10.0)
[2023-12-04 07:48] LABS: CALCIUM LEVEL 7.9 MG/DL (8.3-10.6); CREATININE FOR GFR 1.59 MG/DL (0.70-1.30); GLOMERULAR FILTRATION RATE 44.7 (>35); POTASSIUM SERUM 3.3 MMOL/L (3.5-5.1)
[2023-12-04 14:00] VITALS: BP 142/70; TEMP 98.2; O2SAT 98
[2023-12-04 19:56] VITALS: BP 131/64; TEMP 99.2; O2SAT 92
[2023-12-05 06:03] VITALS: BP 157/71; TEMP 98.7; O2SAT 97
[2023-12-05 07:29] LABS: HEMATOCRIT 29.1 % (42.0-52.0); HEMOGLOBIN 9.7 g/dl (13.5-17.5); MEAN CORPUSCULAR HEMOGLOBIN 31.1 pg (27.0-33.0); MEAN CORPUSCULAR HGB CONC 33.3 g/dl (32.0-36.5); MEAN CORPUSCULAR VOLUME 93.3 fl (80.0-96.0); PLATELET COUNT, AUTOMATED 465 10^3/uL (150-450); RED BLOOD COUNT 3.12 10^6/uL (4.30-6.10); WHITE BLOOD COUNT 11.1 10^3/uL (4.0-10.0)
[2023-12-05 07:57] LABS: ALBUMIN 2.1 G/DL (3.2-5.2); BILIRUBIN,TOTAL 0.5 MG/DL (0.3-1.2); CREATININE FOR GFR 1.57 MG/DL (0.70-1.30); GLOMERULAR FILTRATION RATE 45.4 (>35); MAGNESIUM LEVEL 1.7 MG/DL (1.8-2.4); POTASSIUM SERUM 3.8 MMOL/L (3.5-5.1); TOTAL PROTEIN 5.1 G/DL (5.7-8.2)
[2023-12-05 14:00] VITALS: BP 148/70; TEMP 98.8; O2SAT 97
[2023-12-05 20:04] VITALS: BP 120/63; TEMP 98.3; O2SAT 96
[2023-12-06 06:26] VITALS: BP 143/95; TEMP 98.7; O2SAT 96
[2023-12-06 08:36] VITALS: BP 165/74
[2023-12-06] MEDS: ACETAMINOPHEN 500 MG TAB PO PRN (08:38)
[2023-12-06] MEDS ORDERED: ASPI81CH33 PO (11:48)
[2023-12-06] MEDS ORDERED: LEVO50TA5 PO (11:48)
[2023-12-06] MEDS ORDERED: HYDR-161 PO (13:26)
[2023-12-06 14:00] VITALS: BP 132/66; TEMP 99.3
== END 2023-12-06 15:15 | disposition home or self-care (01) | DRG 561 ==
LOC: M PM&R 17:50
PROVIDERS: ADMIT Student in an Organized Health Care Education/Training Program; ATTEND Student in an Organized Health Care Education/Training Program
DX: S72.011D Unspecified intracapsular fracture of right femur, subsequent encounter for closed fracture with routine healing (principal); N18.30 Chronic kidney disease, stage 3 unspecified; I12.9 Hypertensive chronic kidney disease with stage 1 through stage 4 chronic kidney disease, or unspecified chronic kidney disease; E03.9 Hypothyroidism, unspecified; E78.5 Hyperlipidemia, unspecified; K21.9 Gastro-esophageal reflux disease without esophagitis; R41.3 Other amnesia; D50.9 Iron deficiency anemia, unspecified; I70.1 Atherosclerosis of renal artery; Z74.1 Need for assistance with personal care; Z74.09 Other reduced mobility; M81.0 Age-related osteoporosis without current pathological fracture; D63.1 Anemia in chronic kidney disease; G89.11 Acute pain due to trauma; K59.00 Constipation, unspecified; Z86.73 Personal history of transient ischemic attack (TIA), and cerebral infarction without residual deficits; Z79.82 Long term (current) use of aspirin; Z79.890 Hormone replacement therapy; Z79.899 Other long term (current) drug therapy; Z96.641 Presence of right artificial hip joint; Z90.49 Acquired absence of other specified parts of digestive tract

== ENCOUNTER → 2023-12-08 | Outpatient (CLI) | payer MEDICARE, OTHER | LOC: M SOG 15:40 | PROVIDERS: ATTEND Student in an Organized Health Care Education/Training Program | DX: Z47.89 Encounter for other orthopedic aftercare (principal); Z96.641 Presence of right artificial hip joint ==

== ENCOUNTER 2023-12-23 17:22 | Observation (INO) | payer MEDICARE, OTHER ==
[2023-12-23] VITALS (9 sets, daily range): BP systolic 116–143; BP diastolic 57–84; TEMP 97.7–98.3; O2SAT 98–100
[~2023-12-23] VITALS: Ht 172.7 cm; Wt 53.3 kg
[~2023-12-23 17:22] MED LIST changes: -POTA10CA60 PO; +POTA10CA70 PO
[2023-12-23 18:11] LABS: BASO % 0.5 % (0.0-1.0); EOS # 0.1 10^3/uL (0.0-0.5); EOS % 0.6 % (0.0-3.0); LYMPH # 0.7 10^3/uL (1.5-5.0); LYMPH % 8.5 % (24.0-44.0); MEAN CORPUSCULAR HGB CONC 32.8 g/dl (32.0-36.5); MEAN CORPUSCULAR VOLUME 97.4 fl (80.0-96.0); MONO # 0.6 10^3/uL (0.0-0.8); MONO % 7.6 % (2.0-8.0); NEUTROPHILS # 6.4 10^3/uL (1.5-8.5); NEUTROPHILS % 82.3 % (36.0-66.0); PLATELET COUNT, AUTOMATED 234 10^3/uL (150-450); RED BLOOD COUNT 1.94 10^6/uL (4.30-6.10); WHITE BLOOD COUNT 7.8 10^3/uL (4.0-10.0)
[2023-12-23 18:19] LABS: HEMATOCRIT 18.9 % (42.0-52.0)
[2023-12-23 18:20] LABS: HEMOGLOBIN 6.2 g/dl (13.5-17.5)
[2023-12-23 18:27] LABS: INR 1.12; PROTHROMBIN TIME 14.1 SECONDS (12.5-14.5)
[2023-12-23 18:29] LABS: ALBUMIN 2.7 G/DL (3.2-5.2); BILIRUBIN,TOTAL 0.3 MG/DL (0.3-1.2); CALCIUM LEVEL 7.8 MG/DL (8.3-10.6); CK-MB VALUE MASS 2.4 NG/ML (<3.6); CREATININE FOR GFR 1.78 MG/DL (0.70-1.30); GLOMERULAR FILTRATION RATE 39.2 (>35); MB/CK RELATIVE INDEX 2.96 (< OR =4); POTASSIUM SERUM 3.4 MMOL/L (3.5-5.1); TOTAL PROTEIN 5.1 G/DL (5.7-8.2)
[2023-12-23] MEDS: PANTOPRAZOLE SODIUM 40 MG in D5W 50 ML IV SCH (21:41)
[2023-12-23] MEDS ORDERED: MED REC IN PROGRESS XX SCH (22:10)
[2023-12-23] MEDS ORDERED: CEPH500C PO (23:31)
[2023-12-23] MEDS ORDERED: SENN-121 PO (23:32)
[2023-12-23] MEDS ORDERED: HOME MED LIST COMPLETE! XX SCH (23:35)
[2023-12-23] MEDS ORDERED: ACETAMINOPHEN TAB 650MG DOSE (2X325MG) PO PRN (23:35)
[2023-12-23] MEDS: FUROSEMIDE 20MG/2ML VIAL IV ONE (23:57)
[2023-12-24] VITALS (16 sets, daily range): BP systolic 111–153; BP diastolic 53–74; TEMP 97.4–98.4; O2SAT 95–100
[2023-12-24 00:17] LABS: PERCENT SATURATION 58.3 % (19.7-50.0)
[2023-12-24 00:19] LABS: FERRITIN 58.6 NG/ML (10.5-307.3)
[2023-12-24 00:23] LABS: FOLATE 12.89 NG/ML (>5.4)
[2023-12-24] MEDS: POTASSIUM CHLORIDE 10MEQ SR TABLET PO ONE ×2 (01:10→05:24)
[2023-12-24] MEDS ORDERED: SENOKOT S TAB PO PRN (02:45)
[2023-12-24] MEDS: LEVOTHYROXINE 50MCG TABLET (0.05MG) PO SCH (03:50)
[2023-12-24 03:51] LABS: HEMATOCRIT 24.2 % (42.0-52.0); MEAN CORPUSCULAR HEMOGLOBIN 31.9 pg (27.0-33.0); MEAN CORPUSCULAR HGB CONC 34.3 g/dl (32.0-36.5); MEAN CORPUSCULAR VOLUME 93.1 fl (80.0-96.0); PLATELET COUNT, AUTOMATED 191 10^3/uL (150-450); WHITE BLOOD COUNT 7.4 10^3/uL (4.0-10.0)
[2023-12-24 03:56] LABS: HEMOGLOBIN 8.3 g/dl (13.5-17.5)
[2023-12-24 04:55] LABS: ALBUMIN 2.4 G/DL (3.2-5.2); BILIRUBIN,TOTAL 2.1 MG/DL (0.3-1.2); CALCIUM LEVEL 7.8 MG/DL (8.3-10.6); CREATININE FOR GFR 1.64 MG/DL (0.70-1.30); GLOMERULAR FILTRATION RATE 43.1 (>35); MAGNESIUM LEVEL 1.9 MG/DL (1.8-2.4); POTASSIUM SERUM 3.4 MMOL/L (3.5-5.1); TOTAL PROTEIN 4.9 G/DL (5.7-8.2)
[2023-12-24] MEDS: VITAMIN D 1,000 INTERNATIONAL UNITS TABLET PO SCH (08:41)
[2023-12-24] MEDS: CEPHALEXIN 500 MG CAP PO SCH (08:41)
[2023-12-24] MEDS: **hydrALAZINE** 10 MG TAB PO SCH (08:41)
[2023-12-24] MEDS: FERROUS SULFATE 325MG TAB PO SCH (08:41)
[2023-12-24] MEDS: PANTOPRAZOLE 40MG TAB (PROTONIX) PO SCH (08:41)
[2023-12-24] MEDS: amLODIPine 5 MG TAB PO SCH (08:42)
[2023-12-24 16:12] LABS: HEMATOCRIT 27.5 % (42.0-52.0); HEMOGLOBIN 9.5 g/dl (13.5-17.5); MEAN CORPUSCULAR HEMOGLOBIN 32.1 pg (27.0-33.0); MEAN CORPUSCULAR HGB CONC 34.5 g/dl (32.0-36.5); MEAN CORPUSCULAR VOLUME 92.9 fl (80.0-96.0); PLATELET COUNT, AUTOMATED 200 10^3/uL (150-450); RED BLOOD COUNT 2.96 10^6/uL (4.30-6.10); WHITE BLOOD COUNT 8.2 10^3/uL (4.0-10.0)
[2023-12-24] MEDS ORDERED: PANT40TA29 PO (17:00)
[2023-12-24] MEDS ORDERED: ATORVASTATIN 10 MG TAB PO SCH (21:00)
== END 2023-12-24 18:36 | disposition home or self-care (01) ==
LOC: M ED 17:22 → M ED INP 17:23 → M MS5PR 12-24 01:32
PROVIDERS: ADMIT Preventive Medicine Undersea and Hyperbaric Medicine; ATTEND Preventive Medicine Undersea and Hyperbaric Medicine
DX: D50.0 Iron deficiency anemia secondary to blood loss (chronic) (principal); Z98.890 Other specified postprocedural states; N18.4 Chronic kidney disease, stage 4 (severe); I12.9 Hypertensive chronic kidney disease with stage 1 through stage 4 chronic kidney disease, or unspecified chronic kidney disease; R01.1 Cardiac murmur, unspecified; E87.6 Hypokalemia; E07.9 Disorder of thyroid, unspecified; E78.5 Hyperlipidemia, unspecified; K21.9 Gastro-esophageal reflux disease without esophagitis; K22.70 Barrett's esophagus without dysplasia; K44.9 Diaphragmatic hernia without obstruction or gangrene; Z87.442 Personal history of urinary calculi; Z86.73 Personal history of transient ischemic attack (TIA), and cerebral infarction without residual deficits; Z79.899 Other long term (current) drug therapy; Z79.82 Long term (current) use of aspirin; Z79.2 Long term (current) use of antibiotics; Z79.890 Hormone replacement therapy
CPT/HCPCS: 36415; 36430; 71045; 72170; 80053; 82550; 82553; 82607; 82728; 82746; 83550; 83735; 84484; 85025; 85027; 85610; 86850; 86900; 86901; 86920; 93005; 93041; 94760; 96365; 96366; 96375; 99285; C9113; G0378; J1940; P9016

== ENCOUNTER → 2023-12-28 | Outpatient (REF) | payer MEDICARE, OTHER ==
[~2023-12-28] MED LIST changes: +CEPH500C PO; +SENN-121 PO
[2023-12-28 17:07] LABS: BASO # 0.1 10^3/uL (0.0-0.2); EOS # 0.2 10^3/uL (0.0-0.5); EOS % 2.4 % (0.0-3.0); HEMOGLOBIN 9.5 g/dl (13.5-17.5); LYMPH # 0.8 10^3/uL (1.5-5.0); LYMPH % 9.1 % (24.0-44.0); MEAN CORPUSCULAR HGB CONC 32.8 g/dl (32.0-36.5); MEAN CORPUSCULAR VOLUME 97.6 fl (80.0-96.0); MONO # 0.7 10^3/uL (0.0-0.8); MONO % 8.6 % (2.0-8.0); NEUTROPHILS # 6.5 10^3/uL (1.5-8.5); NEUTROPHILS % 78.5 % (36.0-66.0); PLATELET COUNT, AUTOMATED 260 10^3/uL (150-450); RED BLOOD COUNT 2.97 10^6/uL (4.30-6.10); WHITE BLOOD COUNT 8.2 10^3/uL (4.0-10.0)
[2023-12-28 17:19] LABS: ALBUMIN 2.6 G/DL (3.2-5.2); BILIRUBIN,TOTAL 0.5 MG/DL (0.3-1.2); CALCIUM LEVEL 8.1 MG/DL (8.3-10.6); CREATININE FOR GFR 1.8 MG/DL (0.70-1.30); GLOMERULAR FILTRATION RATE 38.7 (>35); PERCENT SATURATION 39.4 % (19.7-50.0); POTASSIUM SERUM 3.6 MMOL/L (3.5-5.1); TOTAL PROTEIN 5.4 G/DL (5.7-8.2)
== END ==
LOC: M PLALAB 16:15
PROVIDERS: ATTEND Internal Medicine
DX: N18.9 Chronic kidney disease, unspecified (principal); D62 Acute posthemorrhagic anemia

== ENCOUNTER → 2023-12-28 | Outpatient (REF) | payer MEDICARE, OTHER ==
[2023-12-28 18:01] LABS: APPEARANCE, URINE CLOUDY (CLEAR); BACTERIA, URINE AUTO NEGATIVE (NEGATIVE); BILIRUBIN, URINE AUTO NEGATIVE (NEGATIVE); BLOOD, URINE BLOOD 3+ (NEGATIVE); COLOR, URINE YELLOW (YELLOW); GLUCOSE, URINE (UA) AUTO NEGATIVE (NEGATIVE); KETONE, URINE AUTO NEGATIVE (NEGATIVE); LEUKOCYTE ESTERASE, URINE AUTO 1+ (NEGATIVE); MUCUS, URINE SMALL (NEGATIVE); NITRITE, URINE AUTO NEGATIVE (NEGATIVE); PROTEIN, URINE AUTO 2+ mg/dL (NEGATIVE); RBC, URINE AUTO TNTC /HPF (0-3); SPECIFIC GRAVITY URINE AUTO 1.018 (1.002-1.035); SQUAMOUS EPITHELIAL CELL UR AU 0 /HPF (0-6); WBC, URINE AUTO 29 /HPF (0-3)
== END ==
LOC: M PLALAB 16:13
PROVIDERS: ATTEND Nurse Practitioner Family
DX: Z01.818 Encounter for other preprocedural examination (principal)

== ENCOUNTER 2023-12-31 21:34 | Inpatient (IN) | payer MEDICARE, OTHER ==
[~2023-12-31] VITALS: Ht 170.2 cm; Wt 52.4 kg
[2023-12-31 22:08] LABS: BASO % 0.4 % (0.0-1.0); EOS % 0.2 % (0.0-3.0); LYMPH # 0.5 10^3/uL (1.5-5.0); LYMPH % 5.3 % (24.0-44.0); MEAN CORPUSCULAR HEMOGLOBIN 32.4 pg (27.0-33.0); MEAN CORPUSCULAR HGB CONC 33.3 g/dl (32.0-36.5); MEAN CORPUSCULAR VOLUME 97.2 fl (80.0-96.0); MONO # 0.6 10^3/uL (0.0-0.8); MONO % 5.7 % (2.0-8.0); NEUTROPHILS # 8.8 10^3/uL (1.5-8.5); NEUTROPHILS % 87.9 % (36.0-66.0); PLATELET COUNT, AUTOMATED 298 10^3/uL (150-450); RED BLOOD COUNT 2.13 10^6/uL (4.30-6.10)
[2023-12-31 22:20] LABS: HEMOGLOBIN 6.9 g/dl (13.5-17.5)
[2023-12-31 22:21] LABS: HEMATOCRIT 20.7 % (42.0-52.0)
[2023-12-31 22:30] LABS: ALBUMIN 2.7 G/DL (3.2-5.2); BILIRUBIN,DIRECT 0.1 MG/DL (<0.4); BILIRUBIN,TOTAL 0.4 MG/DL (0.3-1.2); CREATININE FOR GFR 1.75 MG/DL (0.70-1.30); TOTAL PROTEIN 5.1 G/DL (5.7-8.2)
[2023-12-31 23:04] LABS: INR 1.08; PROTHROMBIN TIME 13.7 SECONDS (12.5-14.5)
[2023-12-31] MEDS ORDERED: PANT-23 PO (23:12)
[2023-12-31] MEDS ORDERED: HOME MED LIST COMPLETE! XX SCH (23:15)
[2023-12-31 23:28] VITALS: BP 143/64; TEMP 98.7; O2SAT 100
[2023-12-31 23:50] VITALS: BP 168/79; TEMP 98.7; O2SAT 98
[2024-01-01] VITALS (15 sets, daily range): BP systolic 112–170; BP diastolic 56–77; TEMP 97.5–98.8; O2SAT 97–100
[2024-01-01] MEDS ORDERED: ACETAMINOPHEN TAB 650MG DOSE (2X325MG) PO PRN (01:00)
[2024-01-01] MEDS: NS 1,000 ML IV SCH (02:57)
[2024-01-01 06:35] LABS: HEMATOCRIT 23.3 % (42.0-52.0); HEMOGLOBIN 7.8 g/dl (13.5-17.5); MEAN CORPUSCULAR HEMOGLOBIN 31.1 pg (27.0-33.0); MEAN CORPUSCULAR HGB CONC 33.5 g/dl (32.0-36.5); MEAN CORPUSCULAR VOLUME 92.8 fl (80.0-96.0); PLATELET COUNT, AUTOMATED 217 10^3/uL (150-450); RED BLOOD COUNT 2.51 10^6/uL (4.30-6.10); WHITE BLOOD COUNT 7.5 10^3/uL (4.0-10.0)
[2024-01-01 06:57] LABS: ALBUMIN 2.3 G/DL (3.2-5.2); BILIRUBIN,TOTAL 1.5 MG/DL (0.3-1.2); CALCIUM LEVEL 7.7 MG/DL (8.3-10.6); CREATININE FOR GFR 1.68 MG/DL (0.70-1.30); POTASSIUM SERUM 3.3 MMOL/L (3.5-5.1); TOTAL PROTEIN 4.4 G/DL (5.7-8.2)
[2024-01-01] MEDS: DOCUSATE SODIUM 100MG CAPSULE PO SCH (08:31)
[2024-01-01] MEDS: **hydrALAZINE** 10 MG TAB PO SCH (08:31)
[2024-01-01] MEDS: FERROUS SULFATE 325MG TAB PO SCH (08:31)
[2024-01-01] MEDS: PANTOPRAZOLE 40MG VIAL IV SCH (08:31)
[2024-01-01] MEDS: VITAMIN D 1,000 INTERNATIONAL UNITS TABLET PO SCH (08:31)
[2024-01-01] MEDS: amLODIPine 5 MG TAB PO SCH (08:32)
[2024-01-01 09:19] LABS: HEMATOCRIT 24.1 % (42.0-52.0); HEMOGLOBIN 8.1 g/dl (13.5-17.5)
[2024-01-01] MEDS: CYANOCOBALAMIN 500 MCG TAB PO SCH (17:57)
[2024-01-01] MEDS: POTASSIUM CHLORIDE 10MEQ SR TABLET PO ONE (17:57)
[2024-01-01 18:23] LABS: HEMATOCRIT 27.5 % (42.0-52.0); HEMOGLOBIN 9.4 g/dl (13.5-17.5); MEAN CORPUSCULAR HEMOGLOBIN 31.2 pg (27.0-33.0); MEAN CORPUSCULAR HGB CONC 34.2 g/dl (32.0-36.5); MEAN CORPUSCULAR VOLUME 91.4 fl (80.0-96.0); PLATELET COUNT, AUTOMATED 230 10^3/uL (150-450); RED BLOOD COUNT 3.01 10^6/uL (4.30-6.10); WHITE BLOOD COUNT 7.6 10^3/uL (4.0-10.0)
[2024-01-01] MEDS: SENNA 8.6 MG TAB (SENOKOT) PO SCH (20:48)
[2024-01-01] MEDS: ATORVASTATIN 10 MG TAB PO SCH (20:48)
[2024-01-01] MEDS: LEVOTHYROXINE 50MCG TABLET (0.05MG) PO SCH (20:48)
[2024-01-02 03:59] VITALS: BP 149/70; TEMP 97.7; O2SAT 98
[2024-01-02 06:19] LABS: BASO # 0.1 10^3/uL (0.0-0.2); BASO % 0.8 % (0.0-1.0); EOS # 0.2 10^3/uL (0.0-0.5); EOS % 2.7 % (0.0-3.0); HEMATOCRIT 25.2 % (42.0-52.0); HEMOGLOBIN 8.5 g/dl (13.5-17.5); LYMPH # 0.7 10^3/uL (1.5-5.0); LYMPH % 9.2 % (24.0-44.0); MEAN CORPUSCULAR HEMOGLOBIN 31.4 pg (27.0-33.0); MEAN CORPUSCULAR HGB CONC 33.7 g/dl (32.0-36.5); MONO # 0.6 10^3/uL (0.0-0.8); MONO % 7.9 % (2.0-8.0); NEUTROPHILS % 79.1 % (36.0-66.0); PLATELET COUNT, AUTOMATED 220 10^3/uL (150-450); RED BLOOD COUNT 2.71 10^6/uL (4.30-6.10); WHITE BLOOD COUNT 7.5 10^3/uL (4.0-10.0)
[2024-01-02 06:52] LABS: CALCIUM LEVEL 7.7 MG/DL (8.3-10.6); CREATININE FOR GFR 1.58 MG/DL (0.70-1.30); POTASSIUM SERUM 3.6 MMOL/L (3.5-5.1)
[2024-01-02 08:00] VITALS: BP 140/67; TEMP 98; O2SAT 98
[2024-01-02] MEDS: FUROSEMIDE 40MG/4ML VIAL IV ONE (09:59)
[2024-01-02 12:00] VITALS: BP 124/70; TEMP 98; O2SAT 100
[2024-01-02] MEDS: SUCRALFATE SUSP 1GM/10ML UD PO SCH (13:49)
[2024-01-02 16:09] LABS: HEMATOCRIT 29.6 % (42.0-52.0); HEMOGLOBIN 9.8 g/dl (13.5-17.5)
[2024-01-02] MEDS ORDERED: GOLYTELY SOLN 4000 ML BTL PO ONE (16:40)
[2024-01-02 18:43] VITALS: BP 137/68; TEMP 98.2; O2SAT 99
[2024-01-02] MEDS ORDERED: BISACODYL 5MG TAB PO ONE (20:00)
[2024-01-03 04:00] VITALS: BP 143/72; TEMP 98; O2SAT 99
[2024-01-03 06:00] LABS: BASO # 0.1 10^3/uL (0.0-0.2); BASO % 0.8 % (0.0-1.0); EOS # 0.2 10^3/uL (0.0-0.5); EOS % 2.7 % (0.0-3.0); HEMATOCRIT 28.1 % (42.0-52.0); HEMOGLOBIN 9.5 g/dl (13.5-17.5); LYMPH # 0.9 10^3/uL (1.5-5.0); LYMPH % 10.4 % (24.0-44.0); MEAN CORPUSCULAR HEMOGLOBIN 31.7 pg (27.0-33.0); MEAN CORPUSCULAR HGB CONC 33.8 g/dl (32.0-36.5); MEAN CORPUSCULAR VOLUME 93.7 fl (80.0-96.0); MONO # 0.6 10^3/uL (0.0-0.8); MONO % 6.7 % (2.0-8.0); NEUTROPHILS # 6.6 10^3/uL (1.5-8.5); PLATELET COUNT, AUTOMATED 276 10^3/uL (150-450); WHITE BLOOD COUNT 8.4 10^3/uL (4.0-10.0)
[2024-01-03 06:30] LABS: CREATININE FOR GFR 1.66 MG/DL (0.70-1.30); GLOMERULAR FILTRATION RATE 42.5 (>35); POTASSIUM SERUM 3.3 MMOL/L (3.5-5.1)
[2024-01-03 07:11] VITALS: BP 134/76; TEMP 97.8; O2SAT 98
[2024-01-03] MEDS: POTASSIUM CHLORIDE 10MEQ SR TABLET PO ONE (08:36)
[2024-01-03 12:23] VITALS: BP 139/72; TEMP 98.6; O2SAT 98
[2024-01-03 13:00] VITALS: BP 108/68; TEMP 97.7; O2SAT 99
[2024-01-03 21:11] VITALS: BP 113/68; TEMP 98.2; O2SAT 100
[2024-01-04 02:53] VITALS: BP 131/57; TEMP 98.2; O2SAT 99
[2024-01-04 05:25] VITALS: BP 135/78; TEMP 97.7; O2SAT 99
[2024-01-04 06:35] LABS: BASO # 0.1 10^3/uL (0.0-0.2); BASO % 0.9 % (0.0-1.0); EOS # 0.3 10^3/uL (0.0-0.5); EOS % 4.2 % (0.0-3.0); HEMATOCRIT 26.5 % (42.0-52.0); HEMOGLOBIN 8.9 g/dl (13.5-17.5); LYMPH # 0.8 10^3/uL (1.5-5.0); LYMPH % 10.4 % (24.0-44.0); MEAN CORPUSCULAR HEMOGLOBIN 31.3 pg (27.0-33.0); MEAN CORPUSCULAR HGB CONC 33.6 g/dl (32.0-36.5); MEAN CORPUSCULAR VOLUME 93.3 fl (80.0-96.0); MONO # 0.6 10^3/uL (0.0-0.8); MONO % 8.1 % (2.0-8.0); PLATELET COUNT, AUTOMATED 274 10^3/uL (150-450); RED BLOOD COUNT 2.84 10^6/uL (4.30-6.10); WHITE BLOOD COUNT 7.8 10^3/uL (4.0-10.0)
[2024-01-04 07:05] LABS: CALCIUM LEVEL 7.9 MG/DL (8.3-10.6); CREATININE FOR GFR 1.58 MG/DL (0.70-1.30); POTASSIUM SERUM 3.4 MMOL/L (3.5-5.1)
[2024-01-04] MEDS ORDERED: ACET1TAB55 PO (07:17)
[2024-01-04] MEDS ORDERED: PANT-23 PO (07:17)
[2024-01-04] MEDS ORDERED: COLA100C5 PO (07:17)
[2024-01-04] MEDS ORDERED: SUCR1ORA PO (07:17)
[2024-01-04] MEDS: POTASSIUM CHLORIDE 10MEQ SR TABLET PO SCH (08:33)
[2024-01-04 08:35] VITALS: BP 116/52
[2024-01-04 10:00] VITALS: BP 137/76; TEMP 97.9; O2SAT 97
[2024-01-04] MEDS ORDERED: LIDOCAINE 1% MDV 20ML VIAL As Ordered ONE (11:07)
[2024-01-04 12:15] VITALS: TEMP 98.9
[2024-01-04 13:20] VITALS: BP 163/74; O2SAT 98
== END 2024-01-04 14:36 | disposition home or self-care (01) | DRG 378 ==
LOC: M ED 21:34 → M ED INP 23:53 → M PCU 01-01 02:35 → M MSPAV 01-03 12:55
PROVIDERS: ADMIT Family Medicine; ATTEND Internal Medicine
PROC: 30233N1 Transfusion of Nonautologous Red Blood Cells into Peripheral Vein, Percutaneous Approach (ICD-10-PCS; principal; 2023-12-31)
PROC: 07DR3ZX Extraction of Iliac Bone Marrow, Percutaneous Approach, Diagnostic (ICD-10-PCS; 2024-01-04)
DX: K92.2 Gastrointestinal hemorrhage, unspecified (principal); N18.4 Chronic kidney disease, stage 4 (severe); I12.9 Hypertensive chronic kidney disease with stage 1 through stage 4 chronic kidney disease, or unspecified chronic kidney disease; K21.9 Gastro-esophageal reflux disease without esophagitis; D50.9 Iron deficiency anemia, unspecified; Z96.641 Presence of right artificial hip joint; K59.00 Constipation, unspecified; D63.1 Anemia in chronic kidney disease; K57.90 Diverticulosis of intestine, part unspecified, without perforation or abscess without bleeding; E53.8 Deficiency of other specified B group vitamins; E78.5 Hyperlipidemia, unspecified; K44.9 Diaphragmatic hernia without obstruction or gangrene; K22.70 Barrett's esophagus without dysplasia; Z86.73 Personal history of transient ischemic attack (TIA), and cerebral infarction without residual deficits; Z87.442 Personal history of urinary calculi; E03.9 Hypothyroidism, unspecified; K64.8 Other hemorrhoids; Z79.899 Other long term (current) drug therapy

== ENCOUNTER → 2024-01-11 | Outpatient (CLI) | payer MEDICARE, OTHER ==
[~2024-01-11] MED LIST changes: +ACET1TAB55 PO; +COLA100C5 PO
[2024-01-11 16:31] LABS: BASO # 0.1 10^3/uL (0.0-0.2); EOS # 0.4 10^3/uL (0.0-0.5); HEMATOCRIT 33.7 % (42.0-52.0); HEMOGLOBIN 10.6 g/dl (13.5-17.5); LYMPH # 0.8 10^3/uL (1.5-5.0); MEAN CORPUSCULAR HEMOGLOBIN 30.5 pg (27.0-33.0); MEAN CORPUSCULAR HGB CONC 31.5 g/dl (32.0-36.5); MEAN CORPUSCULAR VOLUME 97.1 fl (80.0-96.0); MONO # 0.6 10^3/uL (0.0-0.8); MONO % 8.1 % (2.0-8.0); NEUTROPHILS # 5.9 10^3/uL (1.5-8.5); NEUTROPHILS % 75.6 % (36.0-66.0); PLATELET COUNT, AUTOMATED 418 10^3/uL (150-450); RED BLOOD COUNT 3.47 10^6/uL (4.30-6.10); WHITE BLOOD COUNT 7.8 10^3/uL (4.0-10.0)
[2024-01-11 16:52] LABS: ALBUMIN 2.9 G/DL (3.2-5.2); BILIRUBIN,TOTAL 0.3 MG/DL (0.3-1.2); CALCIUM LEVEL 8.5 MG/DL (8.3-10.6); CREATININE FOR GFR 1.8 MG/DL (0.70-1.30); GLOMERULAR FILTRATION RATE 38.7 (>35); POTASSIUM SERUM 3.2 MMOL/L (3.5-5.1); TOTAL PROTEIN 5.6 G/DL (5.7-8.2)
== END ==
LOC: M WUC 10:30
PROVIDERS: ATTEND Internal Medicine
DX: D62 Acute posthemorrhagic anemia (principal)

== ENCOUNTER → 2024-01-17 | Outpatient (CLI) | payer MEDICARE, OTHER | LOC: M SOG 07:59 | PROVIDERS: ATTEND Physician Assistant | DX: S72.001D Fracture of unspecified part of neck of right femur, subsequent encounter for closed fracture with routine healing (principal); Y93.9 Activity, unspecified; Y92.9 Unspecified place or not applicable ==

== ENCOUNTER → 2024-01-24 | Outpatient (REF) | payer MEDICARE, OTHER ==
[2024-01-24 18:29] LABS: APPEARANCE, URINE MANUAL TURBID (CLEAR); COLOR, URINE MANUAL RED (YELLOW)
[2024-01-24 18:30] LABS: BILIRUBIN, URINE MANUAL NEGATIVE (NEGATIVE); BLOOD URINE MANUAL POSITIVE (NEGATIVE); GLUCOSE, URINE (UA) MANUAL NEGATIVE (NEGATIVE); KETONE, URINE MANUAL NEGATIVE (NEGATIVE); LEUKOCYTE ESTERASE, URINE MAN POSITIVE (NEGATIVE); NITRITE, URINE MANUAL NEGATIVE (NEGATIVE); PROTEIN, URINE MANUAL 3+ mg/dL (NEGATIVE); UROBILINOGEN, URINE MANUAL NORMAL (NORMAL)
[2024-01-24 18:34] LABS: RBC, URINE TNTC /hpf (0-3)
[2024-01-24 18:35] LABS: SQUAMOUS EPITHELIAL CELL URINE NONE SEEN /hpf (SMALL AMT)
[2024-01-24 18:36] LABS: BACTERIA, URINE NONE SEEN; HYALINE CAST, URINE NONE SEEN /lpf (0-1)
== END ==
LOC: M SMT 17:24
PROVIDERS: ATTEND Urology
DX: R31.0 Gross hematuria (principal)

== ENCOUNTER → 2024-01-31 | Outpatient (REF) | payer MEDICARE, OTHER ==
[2024-01-31 13:37] LABS: APPEARANCE, URINE CLOUDY (CLEAR); BACTERIA, URINE AUTO NEGATIVE (NEGATIVE); BILIRUBIN, URINE AUTO NEGATIVE (NEGATIVE); BLOOD, URINE BLOOD 3+ (NEGATIVE); COLOR, URINE RED (YELLOW); GLUCOSE, URINE (UA) AUTO NEGATIVE (NEGATIVE); KETONE, URINE AUTO TRACE mg/dL (NEGATIVE); LEUKOCYTE ESTERASE, URINE AUTO 2+ (NEGATIVE); NITRITE, URINE AUTO NEGATIVE (NEGATIVE); PROTEIN, URINE AUTO 3+ mg/dL (NEGATIVE); RBC, URINE AUTO TNTC /HPF (0-3); SPECIFIC GRAVITY URINE AUTO 1.018 (1.002-1.035); SQUAMOUS EPITHELIAL CELL UR AU 0 /HPF (0-6); WBC, URINE AUTO 56 /HPF (0-3)
== END ==
LOC: M SMT 12:41 → M LABWUC 12:41
PROVIDERS: ATTEND Nurse Practitioner Family
DX: Z01.818 Encounter for other preprocedural examination (principal); Z79.899 Other long term (current) drug therapy

== ENCOUNTER → 2024-02-03 | Outpatient (CLI) | payer MEDICARE, OTHER ==
[2024-02-03 12:43] LABS: BASO # 0.1 10^3/uL (0.0-0.2); BASO % 1.6 % (0.0-1.0); EOS # 0.3 10^3/uL (0.0-0.5); EOS % 4.7 % (0.0-3.0); HEMATOCRIT 33.6 % (42.0-52.0); HEMOGLOBIN 10.8 g/dl (13.5-17.5); LYMPH # 0.9 10^3/uL (1.5-5.0); LYMPH % 13.3 % (24.0-44.0); MEAN CORPUSCULAR HEMOGLOBIN 29.9 pg (27.0-33.0); MEAN CORPUSCULAR HGB CONC 32.1 g/dl (32.0-36.5); MEAN CORPUSCULAR VOLUME 93.1 fl (80.0-96.0); MONO # 0.5 10^3/uL (0.0-0.8); MONO % 7.7 % (2.0-8.0); NEUTROPHILS # 5.1 10^3/uL (1.5-8.5); NEUTROPHILS % 72.6 % (36.0-66.0); PLATELET COUNT, AUTOMATED 315 10^3/uL (150-450); RED BLOOD COUNT 3.61 10^6/uL (4.30-6.10)
[2024-02-03 13:05] LABS: BILIRUBIN,TOTAL 0.4 MG/DL (0.3-1.2); CALCIUM LEVEL 8.5 MG/DL (8.3-10.6); CREATININE FOR GFR 1.83 MG/DL (0.70-1.30); POTASSIUM SERUM 3.2 MMOL/L (3.5-5.1); TOTAL PROTEIN 5.7 G/DL (5.7-8.2)
== END ==
LOC: M WUC 09:56
PROVIDERS: ATTEND Internal Medicine
DX: Z01.818 Encounter for other preprocedural examination (principal)

== ENCOUNTER 2024-02-09 08:34 | Day surgery (SDC) | payer MEDICARE, OTHER ==
[~2024-02-09] VITALS: Ht 172.7 cm; Wt 53.5 kg
[2024-02-09] MEDS ORDERED: KETOROLAC 60MG 2ML VIAL As Ordered ONE (08:53)
[2024-02-09] MEDS ORDERED: propofoL 200 MG/20 ML VIAL As Ordered ONE (08:53)
[2024-02-09] MEDS ORDERED: LIDOCAINE 2% 100MG/5ML SDV (FOR ANES.) As Ordered ONE (08:53)
[2024-02-09] MEDS ORDERED: ONDANSETRON 4MG 2ML VIAL As Ordered ONE (08:53)
[2024-02-09] MEDS ORDERED: fentaNYL 100 MCG/2 ML INJECTION As Ordered ONE (08:56)
[2024-02-09] MEDS: LR 1,000 ML IV SCH (09:12)
[2024-02-09] MEDS: ceFAZolin SOD 2 GM in IV 1 EA IV ONE (09:44)
[2024-02-09] MEDS: ISOVUE-300 61% 100ML VIAL As Ordered ONE (10:12)
[2024-02-09] MEDS ORDERED: HYDROMORPHONE HCL 0.5 MG/ 0.5 ML SYRINGE IV PRN (10:45)
[2024-02-09] MEDS ORDERED: fentaNYL 100 MCG/2 ML INJECTION IV PRN (10:45)
[2024-02-09] MEDS ORDERED: LR 1,000 ML IV SCH (10:45)
[2024-02-09] MEDS ORDERED: PYRI1TAB5 PO (10:45)
[2024-02-09] MEDS ORDERED: oxyCODONE 5MG TAB PO PRN (10:45)
[2024-02-09] MEDS ORDERED: ONDANSETRON 4MG 2ML VIAL IV PRN (10:45)
[2024-02-09] MEDS ORDERED: MACR100C43 PO (10:45)
[2024-02-09] MEDS: hydrALAZINE 20MG/ML 1ML VIAL IV STA (11:44)
[2024-02-09 12:29] VITALS: BP 134/77; TEMP 97.1; O2SAT 97
[2024-02-16] MEDS ORDERED: CIPR500T39 PO (07:31)
== END 2024-02-09 13:50 | disposition home or self-care (01) ==
LOC: M SDC 08:34
PROVIDERS: ATTEND Urology
DX: N20.1 Calculus of ureter (principal); I12.9 Hypertensive chronic kidney disease with stage 1 through stage 4 chronic kidney disease, or unspecified chronic kidney disease; N18.30 Chronic kidney disease, stage 3 unspecified; E03.9 Hypothyroidism, unspecified; E78.00 Pure hypercholesterolemia, unspecified; Z79.899 Other long term (current) drug therapy; Z79.890 Hormone replacement therapy; Z86.73 Personal history of transient ischemic attack (TIA), and cerebral infarction without residual deficits; Z90.49 Acquired absence of other specified parts of digestive tract
CPT/HCPCS: 52356; 76000; C1769; C1894; C2617; J0360; J0690; J1100; J1885; J2405; J3010; Q9967

== ENCOUNTER 2024-02-10 03:05 | Emergency (ER) | payer MEDICARE, OTHER ==
[~2024-02-10] VITALS: Ht 170.2 cm; Wt 55.7 kg
[~2024-02-10 03:05] MED LIST changes: +MACR100C43 PO; +PYRI1TAB5 PO
[2024-02-10 05:49] VITALS: BP 189/72; TEMP 98.1; O2SAT 98
== END 2024-02-10 05:55 | disposition home or self-care (01) ==
LOC: M ED 03:05
DX: T83.098A Other mechanical complication of other urinary catheter, initial encounter (principal); Z79.899 Other long term (current) drug therapy

== ENCOUNTER 2024-02-13 10:54 | Emergency (ER) | payer MEDICARE, OTHER ==
[~2024-02-13] VITALS: Ht 167.6 cm; Wt 54.1 kg
[2024-02-13 12:04] LABS: BASO % 0.6 % (0.0-1.0); EOS # 0.1 10^3/uL (0.0-0.5); EOS % 1.3 % (0.0-3.0); HEMATOCRIT 25.8 % (42.0-52.0); HEMOGLOBIN 8.4 g/dl (13.5-17.5); LYMPH # 0.6 10^3/uL (1.5-5.0); MEAN CORPUSCULAR HEMOGLOBIN 29.5 pg (27.0-33.0); MEAN CORPUSCULAR HGB CONC 32.6 g/dl (32.0-36.5); MEAN CORPUSCULAR VOLUME 90.5 fl (80.0-96.0); MONO # 0.6 10^3/uL (0.0-0.8); MONO % 8.2 % (2.0-8.0); NEUTROPHILS # 5.7 10^3/uL (1.5-8.5); NEUTROPHILS % 81.5 % (36.0-66.0); PLATELET COUNT, AUTOMATED 262 10^3/uL (150-450); RED BLOOD COUNT 2.85 10^6/uL (4.30-6.10)
[2024-02-13 12:38] LABS: CK-MB VALUE MASS 3.5 NG/ML (<3.6)
[2024-02-13 12:39] LABS: ALBUMIN 3.1 G/DL (3.2-5.2); BILIRUBIN,DIRECT 0.1 MG/DL (<0.4); BILIRUBIN,TOTAL 0.4 MG/DL (0.3-1.2); CREATININE FOR GFR 2.01 MG/DL (0.70-1.30); GLOMERULAR FILTRATION RATE 34.1 (>35); MB/CK RELATIVE INDEX 2.57 (< OR =4); POTASSIUM SERUM 3.5 MMOL/L (3.5-5.1); TOTAL PROTEIN 5.8 G/DL (5.7-8.2)
[2024-02-13 12:41] LABS: THYROID STIMULATING HORMONE 18.11 uIU/ML (0.55-4.78)
[2024-02-13] MEDS ORDERED: LEVO50TA5 PO (16:34)
[2024-02-13] MEDS ORDERED: CEFD300C PO (16:56)
[2024-02-13] MEDS: CEFDINIR 300 MG CAP (OMNICEF) PO ONE (17:17)
[2024-02-13 18:07] VITALS: BP 135/67; TEMP 97.7; O2SAT 100
[2024-02-16] MEDS ORDERED: CIPR500T39 PO (07:31)
== END 2024-02-13 18:24 | disposition home or self-care (01) ==
LOC: M ED 10:54
DX: N39.0 Urinary tract infection, site not specified (principal); R31.9 Hematuria, unspecified; Z96.0 Presence of urogenital implants; Z87.442 Personal history of urinary calculi; I12.9 Hypertensive chronic kidney disease with stage 1 through stage 4 chronic kidney disease, or unspecified chronic kidney disease; K21.9 Gastro-esophageal reflux disease without esophagitis; E55.9 Vitamin D deficiency, unspecified; D64.9 Anemia, unspecified; Z86.73 Personal history of transient ischemic attack (TIA), and cerebral infarction without residual deficits; Z79.899 Other long term (current) drug therapy

== ENCOUNTER → 2024-02-14 | Outpatient (CLI) | payer MEDICARE, OTHER ==
[~2024-02-14] MED LIST changes: +CEFD300C PO
== END ==
LOC: M SOG 11:33
PROVIDERS: ATTEND Physician Assistant
DX: Z96.641 Presence of right artificial hip joint (principal)

== ENCOUNTER → 2024-03-05 | Outpatient (REF) | payer MEDICARE, OTHER ==
[~2024-03-05] MED LIST changes: +CIPR500T39 PO
[2024-03-05 19:18] LABS: BASO # 0.1 10^3/uL (0.0-0.2); BASO % 1.7 % (0.0-1.0); EOS # 0.3 10^3/uL (0.0-0.5); EOS % 5.4 % (0.0-3.0); HEMATOCRIT 32.1 % (42.0-52.0); HEMOGLOBIN 9.8 g/dl (13.5-17.5); LYMPH # 0.9 10^3/uL (1.5-5.0); LYMPH % 14.9 % (24.0-44.0); MEAN CORPUSCULAR HEMOGLOBIN 28.4 pg (27.0-33.0); MEAN CORPUSCULAR HGB CONC 30.5 g/dl (32.0-36.5); MONO # 0.6 10^3/uL (0.0-0.8); MONO % 9.6 % (2.0-8.0); NEUTROPHILS # 4.1 10^3/uL (1.5-8.5); NEUTROPHILS % 68.2 % (36.0-66.0); PLATELET COUNT, AUTOMATED 348 10^3/uL (150-450); RED BLOOD COUNT 3.45 10^6/uL (4.30-6.10)
== END ==
LOC: M LABWUC 16:42
PROVIDERS: ATTEND Internal Medicine
DX: D62 Acute posthemorrhagic anemia (principal)

== ENCOUNTER → 2024-03-21 | Outpatient (CLI) | payer MEDICARE, OTHER ==
[2024-03-21 18:36] LABS: BASO # 0.1 10^3/uL (0.0-0.2); BASO % 1.6 % (0.0-1.0); EOS # 0.2 10^3/uL (0.0-0.5); EOS % 3.2 % (0.0-3.0); HEMATOCRIT 35.4 % (42.0-52.0); HEMOGLOBIN 10.8 g/dl (13.5-17.5); LYMPH # 0.8 10^3/uL (1.5-5.0); LYMPH % 11.2 % (24.0-44.0); MEAN CORPUSCULAR HEMOGLOBIN 28.2 pg (27.0-33.0); MEAN CORPUSCULAR HGB CONC 30.5 g/dl (32.0-36.5); MEAN CORPUSCULAR VOLUME 92.4 fl (80.0-96.0); MONO # 0.4 10^3/uL (0.0-0.8); MONO % 6.2 % (2.0-8.0); NEUTROPHILS # 5.5 10^3/uL (1.5-8.5); NEUTROPHILS % 77.5 % (36.0-66.0); PLATELET COUNT, AUTOMATED 286 10^3/uL (150-450); RED BLOOD COUNT 3.83 10^6/uL (4.30-6.10)
[2024-03-22 06:49] LABS: WHITE BLOOD COUNT 7.1 10^3/uL (4.0-10.0)
== END ==
LOC: M WUC 13:33
PROVIDERS: ATTEND Internal Medicine
DX: D62 Acute posthemorrhagic anemia (principal)

== ENCOUNTER → 2024-03-29 | Outpatient (CLI) | payer MEDICARE, OTHER ==
[2024-03-29 16:28] LABS: HEMATOCRIT 35.5 % (42.0-52.0); HEMOGLOBIN 11.3 g/dl (13.5-17.5); MEAN CORPUSCULAR HEMOGLOBIN 28.5 pg (27.0-33.0); MEAN CORPUSCULAR HGB CONC 31.8 g/dl (32.0-36.5); MEAN CORPUSCULAR VOLUME 89.4 fl (80.0-96.0); PLATELET COUNT, AUTOMATED 296 10^3/uL (150-450); RED BLOOD COUNT 3.97 10^6/uL (4.30-6.10); WHITE BLOOD COUNT 6.2 10^3/uL (4.0-10.0)
[2024-03-29 16:52] LABS: INR 1.08; PARTIAL THROMBOPLASTIN TIME 26.7 SECONDS (24.8-34.2); PROTHROMBIN TIME 13.7 SECONDS (12.5-14.5)
[2024-03-29 17:04] LABS: PERCENT SATURATION 75.8 % (19.7-50.0)
[2024-03-29 17:06] LABS: FERRITIN 20.1 NG/ML (10.5-307.3); FREE T4 1.11 NG/DL (0.89-1.76); THYROID STIMULATING HORMONE 19.46 uIU/ML (0.55-4.78)
[2024-04-02 10:07] LABS: TRANSFERRIN 279 mg/dL (188-341)
== END ==
LOC: M WUC 14:49
PROVIDERS: ATTEND Internal Medicine Hematology
DX: D50.0 Iron deficiency anemia secondary to blood loss (chronic) (principal); Z79.899 Other long term (current) drug therapy; I63.9 Cerebral infarction, unspecified

== ENCOUNTER → 2024-04-18 | Outpatient (CLI) | payer MEDICARE, OTHER ==
[2024-04-18 18:34] LABS: BASO # 0.1 10^3/uL (0.0-0.2); BASO % 1.3 % (0.0-1.0); EOS # 0.3 10^3/uL (0.0-0.5); EOS % 4.3 % (0.0-3.0); HEMATOCRIT 35.4 % (42.0-52.0); HEMOGLOBIN 11.5 g/dl (13.5-17.5); LYMPH # 0.9 10^3/uL (1.5-5.0); LYMPH % 14.8 % (24.0-44.0); MEAN CORPUSCULAR HEMOGLOBIN 28.6 pg (27.0-33.0); MEAN CORPUSCULAR HGB CONC 32.5 g/dl (32.0-36.5); MEAN CORPUSCULAR VOLUME 88.1 fl (80.0-96.0); MONO # 0.6 10^3/uL (0.0-0.8); NEUTROPHILS # 4.5 10^3/uL (1.5-8.5); NEUTROPHILS % 70.3 % (36.0-66.0); PLATELET COUNT, AUTOMATED 267 10^3/uL (150-450); RED BLOOD COUNT 4.02 10^6/uL (4.30-6.10); WHITE BLOOD COUNT 6.3 10^3/uL (4.0-10.0)
[2024-04-18 19:07] LABS: ALBUMIN 3.4 G/DL (3.2-5.2); BILIRUBIN,TOTAL 0.5 MG/DL (0.3-1.2); CALCIUM LEVEL 8.9 MG/DL (8.3-10.6); CHOLESTEROL RISK RATIO 5.05 (<5); CREATININE FOR GFR 1.67 MG/DL (0.70-1.30); GLOMERULAR FILTRATION RATE 42.1 (>35); LDL CHOLESTEROL 132.2 MG/DL (<100); POTASSIUM SERUM 3.3 MMOL/L (3.5-5.1); TOTAL PROTEIN 6.1 G/DL (5.7-8.2)
[2024-04-18 19:09] LABS: THYROID STIMULATING HORMONE 18.314 uIU/ML (0.55-4.78)
== END ==
LOC: M WUC 15:49
PROVIDERS: ATTEND Internal Medicine
DX: D62 Acute posthemorrhagic anemia (principal); E78.5 Hyperlipidemia, unspecified; E03.9 Hypothyroidism, unspecified

== ENCOUNTER 2024-05-03 15:47 | Emergency (ER) | payer MEDICARE, OTHER ==
[~2024-05-03] VITALS: Ht 172.7 cm; Wt 59.1 kg
[2024-05-03] MEDS ORDERED: LEVO75TA4 PO (15:56)
[2024-05-03] MEDS ORDERED: POTA10CA70 (15:56)
[2024-05-03] MEDS ORDERED: ASPI81CH48 PO (15:56)
[2024-05-03 17:50] LABS: BASO % 0.2 % (0.0-1.0); LYMPH # 0.5 10^3/uL (1.5-5.0); LYMPH % 4.3 % (24.0-44.0); MEAN CORPUSCULAR HEMOGLOBIN 30.1 pg (27.0-33.0); MEAN CORPUSCULAR HGB CONC 31.1 g/dl (32.0-36.5); MEAN CORPUSCULAR VOLUME 96.7 fl (80.0-96.0); MONO # 0.7 10^3/uL (0.0-0.8); MONO % 5.4 % (2.0-8.0); NEUTROPHILS # 10.9 10^3/uL (1.5-8.5); NEUTROPHILS % 89.2 % (36.0-66.0); PLATELET COUNT, AUTOMATED 219 10^3/uL (150-450); RED BLOOD COUNT 1.53 10^6/uL (4.30-6.10); WHITE BLOOD COUNT 12.2 10^3/uL (4.0-10.0)
[2024-05-03 17:51] LABS: HEMATOCRIT 14.8 % (42.0-52.0)
[2024-05-03 17:52] LABS: HEMOGLOBIN 4.6 g/dl (13.5-17.5)
[2024-05-03] MEDS: NS 500 ML IV ONE (17:56)
[2024-05-03 17:58] LABS: CK-MB VALUE MASS 3.9 NG/ML (<3.6)
[2024-05-03 18:02] LABS: ALBUMIN 2.6 G/DL (3.2-5.2); BILIRUBIN,DIRECT 0.1 MG/DL (<0.4); BILIRUBIN,TOTAL 0.4 MG/DL (0.3-1.2); CALCIUM LEVEL 8.2 MG/DL (8.3-10.6); CREATININE FOR GFR 1.66 MG/DL (0.70-1.30); FREE T4 1.12 NG/DL (0.89-1.76); GLOMERULAR FILTRATION RATE 42.4 (>35); POTASSIUM SERUM 3.7 MMOL/L (3.5-5.1); THYROID STIMULATING HORMONE 9.058 uIU/ML (0.55-4.78); TOTAL PROTEIN 4.9 G/DL (5.7-8.2)
[2024-05-03 18:15] LABS: MB/CK RELATIVE INDEX 1.87 (< OR =4)
[2024-05-03 19:05] LABS: INR 1.04; PROTHROMBIN TIME 13.3 SECONDS (12.5-14.5)
[2024-05-03] MEDS ORDERED: POTA99CA2 PO (19:14)
[2024-05-03] MEDS ORDERED: HOME MED LIST COMPLETE! XX SCH (19:15)
[2024-05-03 19:42] VITALS: BP 124/59; TEMP 97.4
[2024-05-03 20:33] VITALS: BP 136/61; TEMP 98.3
[2024-05-03 22:48] LABS: MEAN CORPUSCULAR HEMOGLOBIN 30.3 pg (27.0-33.0); MEAN CORPUSCULAR HGB CONC 32.3 g/dl (32.0-36.5); MEAN CORPUSCULAR VOLUME 93.8 fl (80.0-96.0); PLATELET COUNT, AUTOMATED 200 10^3/uL (150-450); RED BLOOD COUNT 1.78 10^6/uL (4.30-6.10); WHITE BLOOD COUNT 13.4 10^3/uL (4.0-10.0)
[2024-05-03 22:49] VITALS: BP 121/55; TEMP 97.6; O2SAT 100
[2024-05-03 22:51] LABS: HEMATOCRIT 16.7 % (42.0-52.0)
[2024-05-03 22:52] LABS: HEMOGLOBIN 5.4 g/dl (13.5-17.5)
[2024-05-03] MEDS ORDERED: ISOVUE-370 76% 100ML VIAL As Ordered ONE (23:02)
[2024-05-03 23:32] VITALS: BP 118/58; TEMP 97.4
[2024-05-04 00:10] VITALS: BP 117/58; TEMP 97.5; O2SAT 100
[2024-05-04 02:23] VITALS: BP 111/54; TEMP 97.4
[2024-05-04 09:00] VITALS: BP 145/65; TEMP 97.7; O2SAT 99
[2024-05-04 09:31] LABS: MEAN CORPUSCULAR HEMOGLOBIN 30.7 pg (27.0-33.0); MEAN CORPUSCULAR HGB CONC 34.6 g/dl (32.0-36.5); MEAN CORPUSCULAR VOLUME 88.8 fl (80.0-96.0); PLATELET COUNT, AUTOMATED 195 10^3/uL (150-450); RED BLOOD COUNT 2.15 10^6/uL (4.30-6.10); WHITE BLOOD COUNT 10.9 10^3/uL (4.0-10.0)
[2024-05-04 09:32] LABS: HEMATOCRIT 19.1 % (42.0-52.0); HEMOGLOBIN 6.6 g/dl (13.5-17.5)
== END 2024-05-04 09:09 | disposition short-term general hospital (02) ==
LOC: EDBD 15:47 → M ED 15:47 → EDSEX 15:47 → M ED 05-04 09:09
DX: D64.9 Anemia, unspecified (principal); R53.1 Weakness; I95.1 Orthostatic hypotension; I10 Essential (primary) hypertension; N18.9 Chronic kidney disease, unspecified; K21.9 Gastro-esophageal reflux disease without esophagitis; E61.1 Iron deficiency; M85.80 Other specified disorders of bone density and structure, unspecified site; M50.30 Other cervical disc degeneration, unspecified cervical region; Z79.899 Other long term (current) drug therapy
CPT/HCPCS: 36430; 70450; 71045; 72125; 74177; 80048; 80076; 81001; 82550; 82553; 84439; 84443; 84484; 85025; 85027; 85610; 85730; 86850; 86900; 86901; 86920; 87086; 87486; 87581; 87633; 87798; 93005; 93041; 99285; P9016; Q9967

== ENCOUNTER → 2024-05-21 | Outpatient (CLI) | payer MEDICARE, OTHER ==
[~2024-05-21] MED LIST changes: +ASPI81CH48 PO; +LEVO75TA4 PO; +POTA10CA70; +POTA99CA2 PO
[2024-05-21 18:42] LABS: BASO # 0.1 10^3/uL (0.0-0.2); BASO % 1.2 % (0.0-1.0); EOS # 0.2 10^3/uL (0.0-0.5); EOS % 2.4 % (0.0-3.0); HEMATOCRIT 33.1 % (42.0-52.0); HEMOGLOBIN 10.6 g/dl (13.5-17.5); LYMPH # 0.8 10^3/uL (1.5-5.0); LYMPH % 10.7 % (24.0-44.0); MEAN CORPUSCULAR HEMOGLOBIN 29.2 pg (27.0-33.0); MEAN CORPUSCULAR VOLUME 91.2 fl (80.0-96.0); MONO # 0.7 10^3/uL (0.0-0.8); NEUTROPHILS # 5.7 10^3/uL (1.5-8.5); NEUTROPHILS % 76.3 % (36.0-66.0); PLATELET COUNT, AUTOMATED 392 10^3/uL (150-450); RED BLOOD COUNT 3.63 10^6/uL (4.30-6.10); WHITE BLOOD COUNT 7.5 10^3/uL (4.0-10.0)
[2024-05-21 19:19] LABS: ALBUMIN 3.2 G/DL (3.2-5.2); BILIRUBIN,TOTAL 0.4 MG/DL (0.3-1.2); CALCIUM LEVEL 8.7 MG/DL (8.3-10.6); CREATININE FOR GFR 1.78 MG/DL (0.70-1.30); GLOMERULAR FILTRATION RATE 39.1 (>35); POTASSIUM SERUM 3.5 MMOL/L (3.5-5.1); TOTAL PROTEIN 5.9 G/DL (5.7-8.2)
== END ==
LOC: M WUC 14:37
PROVIDERS: ATTEND Internal Medicine
DX: D62 Acute posthemorrhagic anemia (principal)

== ENCOUNTER → 2024-05-22 | Outpatient (CLI) | payer MEDICARE, OTHER ==
[2024-05-22 12:14] LABS: BASO # 0.1 10^3/uL (0.0-0.2); BASO % 1.7 % (0.0-1.0); EOS # 0.4 10^3/uL (0.0-0.5); EOS % 7.8 % (0.0-3.0); FERRITIN 28.4 NG/ML (10.5-307.3); HEMATOCRIT 31.6 % (42.0-52.0); HEMOGLOBIN 9.9 g/dl (13.5-17.5); LYMPH # 0.8 10^3/uL (1.5-5.0); LYMPH % 17.4 % (24.0-44.0); MEAN CORPUSCULAR HEMOGLOBIN 28.1 pg (27.0-33.0); MEAN CORPUSCULAR HGB CONC 31.3 g/dl (32.0-36.5); MEAN CORPUSCULAR VOLUME 89.8 fl (80.0-96.0); MONO # 0.4 10^3/uL (0.0-0.8); MONO % 8.8 % (2.0-8.0); NEUTROPHILS # 3.1 10^3/uL (1.5-8.5); NEUTROPHILS % 64.1 % (36.0-66.0); PLATELET COUNT, AUTOMATED 343 10^3/uL (150-450); RED BLOOD COUNT 3.52 10^6/uL (4.30-6.10); THYROID STIMULATING HORMONE 44.683 uIU/ML (0.55-4.78); WHITE BLOOD COUNT 4.8 10^3/uL (4.0-10.0)
== END ==
LOC: M WUC 09:27
PROVIDERS: ATTEND Internal Medicine Hematology
DX: E03.9 Hypothyroidism, unspecified (principal); D50.0 Iron deficiency anemia secondary to blood loss (chronic)

== ENCOUNTER → 2024-06-04 | Outpatient (REF) | payer MEDICARE, OTHER ==
[2024-06-04 18:16] LABS: BASO # 0.1 10^3/uL (0.0-0.2); BASO % 1.8 % (0.0-1.0); EOS # 0.3 10^3/uL (0.0-0.5); EOS % 4.5 % (0.0-3.0); HEMATOCRIT 35.7 % (42.0-52.0); HEMOGLOBIN 11.2 g/dl (13.5-17.5); LYMPH % 14.4 % (24.0-44.0); MEAN CORPUSCULAR HEMOGLOBIN 28.7 pg (27.0-33.0); MEAN CORPUSCULAR HGB CONC 31.4 g/dl (32.0-36.5); MEAN CORPUSCULAR VOLUME 91.5 fl (80.0-96.0); MONO # 0.5 10^3/uL (0.0-0.8); MONO % 7.6 % (2.0-8.0); NEUTROPHILS # 5.1 10^3/uL (1.5-8.5); NEUTROPHILS % 71.4 % (36.0-66.0); PLATELET COUNT, AUTOMATED 293 10^3/uL (150-450); WHITE BLOOD COUNT 7.1 10^3/uL (4.0-10.0)
== END ==
LOC: M LABWUC 16:35
PROVIDERS: ATTEND Internal Medicine Hematology
DX: D50.0 Iron deficiency anemia secondary to blood loss (chronic) (principal)

== ENCOUNTER 2024-06-05 09:15 | Outpatient (CLI) | payer MEDICARE, OTHER ==
[~2024-06-05] VITALS: Ht 165.1 cm; Wt 56.0 kg
[~2024-06-05 09:15] MED LIST changes: +ALBUTEROL SULFATE 2.5MG/0.5ML INH NEB SOLN INH PRN; +EPINEPHrine INJ 1 MG/ML 1ML AMP IM PRN; +NS 1,000 ML IV SCH; +diphenhydrAMINE 50MG/ML VIAL IV PRN; +methylPREDNISolone 125MG 2ML VIAL IV PRN
[2024-06-05 09:25] VITALS: BP 158/90; O2SAT 100
[2024-06-05] MEDS: IRON SUCROSE 300 MG in NS 250 ML IV ONE (10:14)
[2024-06-05 12:20] VITALS: BP 140/72; O2SAT 98
== END 2024-06-05 12:20 ==
LOC: M INFU 09:15
PROVIDERS: ATTEND Internal Medicine Hematology
DX: D50.9 Iron deficiency anemia, unspecified (principal)
CPT/HCPCS: 96365; 96366; J1756

== ENCOUNTER → 2024-06-19 | Outpatient (CLI) | payer MEDICARE, OTHER ==
[~2024-06-19] MED LIST changes: -ALBUTEROL SULFATE 2.5MG/0.5ML INH NEB SOLN INH PRN; -EPINEPHrine INJ 1 MG/ML 1ML AMP IM PRN; -NS 1,000 ML IV SCH; -diphenhydrAMINE 50MG/ML VIAL IV PRN; -methylPREDNISolone 125MG 2ML VIAL IV PRN
[2024-06-19 13:06] LABS: BASO # 0.1 10^3/uL (0.0-0.2); BASO % 2.2 % (0.0-1.0); EOS # 0.6 10^3/uL (0.0-0.5); EOS % 8.6 % (0.0-3.0); HEMATOCRIT 38.7 % (42.0-52.0); LYMPH # 1.1 10^3/uL (1.5-5.0); LYMPH % 16.6 % (24.0-44.0); MEAN CORPUSCULAR HEMOGLOBIN 28.5 pg (27.0-33.0); MEAN CORPUSCULAR VOLUME 91.9 fl (80.0-96.0); MONO # 0.6 10^3/uL (0.0-0.8); MONO % 9.4 % (2.0-8.0); PLATELET COUNT, AUTOMATED 287 10^3/uL (150-450); RED BLOOD COUNT 4.21 10^6/uL (4.30-6.10); WHITE BLOOD COUNT 6.4 10^3/uL (4.0-10.0)
== END ==
LOC: M WUC 09:32
PROVIDERS: ATTEND Internal Medicine Hematology
DX: D50.0 Iron deficiency anemia secondary to blood loss (chronic) (principal)

== ENCOUNTER → 2024-07-03 | Outpatient (CLI) | payer MEDICARE, OTHER ==
[2024-07-03 10:20] LABS: BASO # 0.1 10^3/uL (0.0-0.2); BASO % 1.8 % (0.0-1.0); EOS # 0.7 10^3/uL (0.0-0.5); EOS % 8.9 % (0.0-3.0); HEMATOCRIT 40.5 % (42.0-52.0); HEMOGLOBIN 12.9 g/dl (13.5-17.5); LYMPH # 1.3 10^3/uL (1.5-5.0); LYMPH % 16.8 % (24.0-44.0); MEAN CORPUSCULAR HEMOGLOBIN 29.2 pg (27.0-33.0); MEAN CORPUSCULAR HGB CONC 31.9 g/dl (32.0-36.5); MEAN CORPUSCULAR VOLUME 91.6 fl (80.0-96.0); MONO # 0.7 10^3/uL (0.0-0.8); MONO % 9.2 % (2.0-8.0); PLATELET COUNT, AUTOMATED 268 10^3/uL (150-450); RED BLOOD COUNT 4.42 10^6/uL (4.30-6.10); WHITE BLOOD COUNT 7.9 10^3/uL (4.0-10.0)
== END ==
LOC: M WUC 08:38
PROVIDERS: ATTEND Internal Medicine Hematology
DX: D50.0 Iron deficiency anemia secondary to blood loss (chronic) (principal)

== ENCOUNTER → 2024-07-17 | Outpatient (CLI) | payer MEDICARE, OTHER ==
[2024-07-17 12:16] LABS: BASO # 0.1 10^3/uL (0.0-0.2); EOS # 0.7 10^3/uL (0.0-0.5); EOS % 9.4 % (0.0-3.0); HEMATOCRIT 41.4 % (42.0-52.0); HEMOGLOBIN 13.3 g/dl (13.5-17.5); LYMPH # 1.2 10^3/uL (1.5-5.0); LYMPH % 16.6 % (24.0-44.0); MEAN CORPUSCULAR HEMOGLOBIN 29.3 pg (27.0-33.0); MEAN CORPUSCULAR HGB CONC 32.1 g/dl (32.0-36.5); MEAN CORPUSCULAR VOLUME 91.2 fl (80.0-96.0); MONO # 0.7 10^3/uL (0.0-0.8); NEUTROPHILS # 4.5 10^3/uL (1.5-8.5); NEUTROPHILS % 62.7 % (36.0-66.0); PLATELET COUNT, AUTOMATED 291 10^3/uL (150-450); RED BLOOD COUNT 4.54 10^6/uL (4.30-6.10); WHITE BLOOD COUNT 7.2 10^3/uL (4.0-10.0)
[2024-07-17 12:23] LABS: ALBUMIN 3.6 G/DL (3.2-5.2); BILIRUBIN,TOTAL 0.5 MG/DL (0.3-1.2); CALCIUM LEVEL 9.5 MG/DL (8.3-10.6); CREATININE FOR GFR 1.5 MG/DL (0.70-1.30); GLOMERULAR FILTRATION RATE 47.7 (>35); POTASSIUM SERUM 3.6 MMOL/L (3.5-5.1); TOTAL PROTEIN 6.8 G/DL (5.7-8.2)
== END ==
LOC: M WUC 09:40
PROVIDERS: ATTEND Internal Medicine
DX: D62 Acute posthemorrhagic anemia (principal)

== ENCOUNTER → 2024-07-17 | Outpatient (CLI) | payer MEDICARE, OTHER ==
[2024-07-17 12:17] LABS: BASO # 0.1 10^3/uL (0.0-0.2); BASO % 1.1 % (0.0-1.0); EOS # 0.7 10^3/uL (0.0-0.5); EOS % 9.2 % (0.0-3.0); HEMATOCRIT 40.9 % (42.0-52.0); HEMOGLOBIN 13.3 g/dl (13.5-17.5); LYMPH # 1.3 10^3/uL (1.5-5.0); MEAN CORPUSCULAR HEMOGLOBIN 29.8 pg (27.0-33.0); MEAN CORPUSCULAR HGB CONC 32.5 g/dl (32.0-36.5); MEAN CORPUSCULAR VOLUME 91.7 fl (80.0-96.0); MONO # 0.7 10^3/uL (0.0-0.8); MONO % 9.9 % (2.0-8.0); NEUTROPHILS # 4.5 10^3/uL (1.5-8.5); NEUTROPHILS % 61.5 % (36.0-66.0); PLATELET COUNT, AUTOMATED 287 10^3/uL (150-450); RED BLOOD COUNT 4.46 10^6/uL (4.30-6.10); WHITE BLOOD COUNT 7.4 10^3/uL (4.0-10.0)
== END ==
LOC: M WUC 09:42
PROVIDERS: ATTEND Internal Medicine Hematology
DX: D50.0 Iron deficiency anemia secondary to blood loss (chronic) (principal)

== ENCOUNTER → 2024-07-31 | Outpatient (REF) | payer MEDICARE, OTHER ==
[2024-07-31 19:11] LABS: BASO # 0.1 10^3/uL (0.0-0.2); BASO % 1.5 % (0.0-1.0); EOS # 0.5 10^3/uL (0.0-0.5); EOS % 5.2 % (0.0-3.0); HEMATOCRIT 41.4 % (42.0-52.0); HEMOGLOBIN 13.4 g/dl (13.5-17.5); LYMPH # 1.4 10^3/uL (1.5-5.0); LYMPH % 15.2 % (24.0-44.0); MEAN CORPUSCULAR HEMOGLOBIN 29.8 pg (27.0-33.0); MEAN CORPUSCULAR HGB CONC 32.4 g/dl (32.0-36.5); MEAN CORPUSCULAR VOLUME 92.2 fl (80.0-96.0); MONO # 0.9 10^3/uL (0.0-0.8); MONO % 9.4 % (2.0-8.0); NEUTROPHILS # 6.3 10^3/uL (1.5-8.5); NEUTROPHILS % 68.5 % (36.0-66.0); PLATELET COUNT, AUTOMATED 282 10^3/uL (150-450); RED BLOOD COUNT 4.49 10^6/uL (4.30-6.10); WHITE BLOOD COUNT 9.2 10^3/uL (4.0-10.0)
== END ==
LOC: M LABWUC 16:25
PROVIDERS: ATTEND Internal Medicine Hematology
DX: D50.0 Iron deficiency anemia secondary to blood loss (chronic) (principal)

== ENCOUNTER 2024-08-06 08:45 | Outpatient (CLI) | payer MEDICARE, OTHER ==
[~2024-08-06] VITALS: Ht 165.1 cm; Wt 59.0 kg
[2024-08-06 08:45] VITALS: BP 133/79; O2SAT 100
[~2024-08-06 08:45] MED LIST changes: +ALBUTEROL SULFATE 2.5MG/0.5ML INH NEB SOLN INH PRN; +EPINEPHrine INJ 1 MG/ML 1ML AMP IM PRN; +diphenhydrAMINE 50MG/ML VIAL IV PRN; +methylPREDNISolone 125MG 2ML VIAL IV PRN
[2024-08-06] MEDS: IRON SUCROSE 400 MG in NS 250 ML OVER 2.5 HRS IV ONE (09:32)
[2024-08-06 10:30] VITALS: BP 133/70; O2SAT 99
[2024-08-06 12:10] VITALS: BP 150/81; O2SAT 99
== END 2024-08-06 12:20 ==
LOC: M INFU 08:45
PROVIDERS: ATTEND Internal Medicine Hematology
DX: D50.9 Iron deficiency anemia, unspecified (principal)
CPT/HCPCS: 96365; 96366; J1756

== ENCOUNTER → 2024-08-14 | Outpatient (REF) | payer MEDICARE, OTHER ==
[~2024-08-14] MED LIST changes: -ALBUTEROL SULFATE 2.5MG/0.5ML INH NEB SOLN INH PRN; -EPINEPHrine INJ 1 MG/ML 1ML AMP IM PRN; -diphenhydrAMINE 50MG/ML VIAL IV PRN; -methylPREDNISolone 125MG 2ML VIAL IV PRN
[2024-08-14 13:44] LABS: BASO # 0.1 10^3/uL (0.0-0.2); BASO % 1.2 % (0.0-1.0); EOS # 0.2 10^3/uL (0.0-0.5); EOS % 2.8 % (0.0-3.0); HEMATOCRIT 42.7 % (42.0-52.0); LYMPH % 12.3 % (24.0-44.0); MEAN CORPUSCULAR HEMOGLOBIN 29.9 pg (27.0-33.0); MEAN CORPUSCULAR HGB CONC 32.8 g/dl (32.0-36.5); MONO # 0.6 10^3/uL (0.0-0.8); MONO % 7.6 % (2.0-8.0); NEUTROPHILS # 6.4 10^3/uL (1.5-8.5); NEUTROPHILS % 75.9 % (36.0-66.0); PLATELET COUNT, AUTOMATED 328 10^3/uL (150-450); RED BLOOD COUNT 4.69 10^6/uL (4.30-6.10); WHITE BLOOD COUNT 8.5 10^3/uL (4.0-10.0)
== END ==
LOC: M LABWUC 13:01
PROVIDERS: ATTEND Internal Medicine Hematology
DX: D50.0 Iron deficiency anemia secondary to blood loss (chronic) (principal)

== ENCOUNTER → 2024-08-28 | Outpatient (REF) | payer MEDICARE, OTHER ==
[~2024-08-28] MED LIST changes: -BAYE325T12 PO; +BAYE325T2 PO
[2024-08-28 18:39] LABS: BASO # 0.1 10^3/uL (0.0-0.2); BASO % 1.4 % (0.0-1.0); EOS # 0.4 10^3/uL (0.0-0.5); EOS % 5.5 % (0.0-3.0); HEMATOCRIT 43.1 % (42.0-52.0); HEMOGLOBIN 13.9 g/dl (13.5-17.5); LYMPH # 1.4 10^3/uL (1.5-5.0); LYMPH % 19.4 % (24.0-44.0); MEAN CORPUSCULAR HEMOGLOBIN 30.3 pg (27.0-33.0); MEAN CORPUSCULAR HGB CONC 32.3 g/dl (32.0-36.5); MEAN CORPUSCULAR VOLUME 94.1 fl (80.0-96.0); MONO # 0.5 10^3/uL (0.0-0.8); MONO % 7.3 % (2.0-8.0); NEUTROPHILS # 4.7 10^3/uL (1.5-8.5); NEUTROPHILS % 66.1 % (36.0-66.0); PLATELET COUNT, AUTOMATED 289 10^3/uL (150-450); RED BLOOD COUNT 4.58 10^6/uL (4.30-6.10); WHITE BLOOD COUNT 7.1 10^3/uL (4.0-10.0)
== END ==
LOC: M LAB REF 17:32 → M LABWUC 17:32
PROVIDERS: ATTEND Internal Medicine Hematology
DX: D50.0 Iron deficiency anemia secondary to blood loss (chronic) (principal)

== ENCOUNTER → 2024-08-29 | Outpatient (REF) | payer MEDICARE, OTHER ==
[2024-08-29 19:04] LABS: BACTERIA, URINE AUTO NEGATIVE (NEGATIVE); CALCIUM OXALATE CRYSTALS LARGE; MUCUS, URINE SMALL (NEGATIVE); RBC, URINE AUTO TNTC /HPF (0-3); SQUAMOUS EPITHELIAL CELL UR AU 0 /HPF (0-6); WBC, URINE AUTO 62 /HPF (0-3)
== END ==
LOC: M LAB REF 17:07
PROVIDERS: ATTEND Nurse Practitioner Family
DX: R31.21 Asymptomatic microscopic hematuria (principal); N39.0 Urinary tract infection, site not specified

== ENCOUNTER → 2024-10-22 | Outpatient (CLI) | payer MEDICARE, OTHER ==
[2024-10-22 17:37] LABS: ALBUMIN 3.8 G/DL (3.2-5.2); BILIRUBIN,TOTAL 0.5 MG/DL (0.3-1.2); CHOLESTEROL RISK RATIO 3.87 (<5); CREATININE FOR GFR 1.59 MG/DL (0.70-1.30); GLOMERULAR FILTRATION RATE 44.6 (>35); HDL CHOLESTEROL 57.3 MG/DL (>40); LDL CHOLESTEROL 145.3 MG/DL (<100); NON-HDL-C 164.7 MG/DL; POTASSIUM SERUM 3.9 MMOL/L (3.5-5.1)
[2024-10-22 17:38] LABS: BASO # 0.1 10^3/uL (0.0-0.2); BASO % 1.8 % (0.0-1.0); EOS # 0.3 10^3/uL (0.0-0.5); EOS % 4.2 % (0.0-3.0); HEMATOCRIT 35.7 % (42.0-52.0); LYMPH # 0.9 10^3/uL (1.5-5.0); LYMPH % 13.3 % (24.0-44.0); MEAN CORPUSCULAR HEMOGLOBIN 27.7 pg (27.0-33.0); MEAN CORPUSCULAR HGB CONC 30.8 g/dl (32.0-36.5); MEAN CORPUSCULAR VOLUME 89.9 fl (80.0-96.0); MONO # 0.6 10^3/uL (0.0-0.8); MONO % 8.6 % (2.0-8.0); NEUTROPHILS # 4.9 10^3/uL (1.5-8.5); PLATELET COUNT, AUTOMATED 321 10^3/uL (150-450); RED BLOOD COUNT 3.97 10^6/uL (4.30-6.10); THYROID STIMULATING HORMONE 2.152 uIU/ML (0.55-4.78); WHITE BLOOD COUNT 6.9 10^3/uL (4.0-10.0)
[2024-10-22 17:39] LABS: BASO # 0.1 10^3/uL (0.0-0.2); BASO % 1.9 % (0.0-1.0); EOS # 0.3 10^3/uL (0.0-0.5); EOS % 4.5 % (0.0-3.0); FERRITIN 9.5 NG/ML (10.5-307.3); FREE T4 1.69 NG/DL (0.89-1.76); HEMATOCRIT 36.2 % (42.0-52.0); HEMOGLOBIN 11.1 g/dl (13.5-17.5); LYMPH # 0.9 10^3/uL (1.5-5.0); LYMPH % 12.4 % (24.0-44.0); MEAN CORPUSCULAR HEMOGLOBIN 27.6 pg (27.0-33.0); MEAN CORPUSCULAR HGB CONC 30.7 g/dl (32.0-36.5); MONO # 0.6 10^3/uL (0.0-0.8); MONO % 8.2 % (2.0-8.0); NEUTROPHILS % 72.9 % (36.0-66.0); PLATELET COUNT, AUTOMATED 334 10^3/uL (150-450); RED BLOOD COUNT 4.02 10^6/uL (4.30-6.10); THYROID STIMULATING HORMONE 2.158 uIU/ML (0.55-4.78); WHITE BLOOD COUNT 6.9 10^3/uL (4.0-10.0)
== END ==
LOC: M WUC 13:25
PROVIDERS: ATTEND Internal Medicine
DX: D62 Acute posthemorrhagic anemia (principal); E03.9 Hypothyroidism, unspecified; E78.5 Hyperlipidemia, unspecified

== ENCOUNTER → 2024-11-28 | Outpatient (REF) | payer MEDICARE, OTHER ==
[2024-11-28 18:28] LABS: PERCENT SATURATION 5.2 % (19.7-50.0)
[2024-11-28 18:31] LABS: FERRITIN 7.5 NG/ML (10.5-307.3)
== END ==
LOC: M LAB REF 16:52
PROVIDERS: ATTEND Nurse Practitioner Family
DX: D50.9 Iron deficiency anemia, unspecified (principal)

== ENCOUNTER → 2025-04-30 | Outpatient (CLI) | payer MEDICARE, OTHER ==
[~2025-04-30] MED LIST changes: +B-122500 PO; -FLOM0.4C39 PO; +LEVO100T5; +PANT40TA29; +SUCR1ORA; +TAMS-18 PO
[2025-04-30 18:26] LABS: BASO # 0.1 10^3/uL (0.0-0.2); BASO % 1.4 % (0.0-1.0); EOS # 0.8 10^3/uL (0.0-0.5); EOS % 8.8 % (0.0-3.0); LYMPH # 1.0 10^3/uL (1.5-5.0); LYMPH % 11.9 % (24.0-44.0); MONO # 0.8 10^3/uL (0.0-0.8); MONO % 9.0 % (2.0-8.0); NEUTROPHILS # 5.9 10^3/uL (1.5-8.5); NEUTROPHILS % 68.6 % (36.0-66.0); PLATELET COUNT, AUTOMATED 234 10^3/uL (150-450)
[2025-04-30 18:33] LABS: ALT/SGPT 30.0 U/L (7.0-40); AST/SGOT 31.0 U/L (<34); CALCIUM LEVEL 9.4 MG/DL (8.3-10.6); CARBON DIOXIDE LEVEL 27.0 MMOL/L (20-31); CHLORIDE LEVEL 104.0 MMOL/L (98-107); CHOLESTEROL LEVEL 152.0 MG/DL (<200); CHOLESTEROL RISK RATIO 3.61 (<5); CREATININE FOR GFR 1.74 MG/DL (0.70-1.30); GLOMERULAR FILTRATION RATE 38.4 (>35); LDL CHOLESTEROL 86.8 MG/DL (<100); NON-HDL-C 110.0 MG/DL; POTASSIUM SERUM 4.1 MMOL/L (3.5-5.1); SODIUM LEVEL 142.0 MMOL/L (136-145); TRIGLYCERIDES LEVEL 116.0 MG/DL (<150)
== END ==
LOC: M WUC 14:17
PROVIDERS: ATTEND Internal Medicine
DX: E78.5 Hyperlipidemia, unspecified (principal)